=== PATIENT | female | born 1955 | race Caucasian/White ===

== ENCOUNTER → 2016-12-13 | Outpatient (CLI) | payer BC ==
--- NOTE | 2016-12-13 13:30 | MG ---
HISTORY: SCREENING Comparison: 12/12/2015 FINDINGS: Bilateral CC and MLO projections of the right and left breast were obtained. Scattered fibroglandul ar tissue is seen to be present. No significant architectural distortion, mass or clustered microca lcifications can be observed to suggest malignancy. No skin thickening or nipple retraction is appr eciated. No pathological lymphadenopathy can be identified. Benign-appearing calcifications scatte red throughout the right and left breasts are observed. IMPRESSION: NO RADIOGRAPHIC EVIDENCE OF MALIGNANCY. ACR CATEGORY: 2 - benign findings. FOLLOW-UP EXAM 1 YEAR. Diagnostic CAD was utilized and reviewed. * 0 (ZERO) - ASSESSMENT INCOMPLETE; ADDITIONAL IMAGING IS NEEDED. * 1/ (ONE) - NEGATIVE. * 2/II (TWO) - BENIGN FINDINGS. * 3/III (THREE) - PROBABLY BENIGN FINDING; SHORT INTERVAL FOLLOW-UP SUGGESTED. * 4/IV (FOUR) - SUSPICIOUS ABNORMALITY; BIOPSY SHOULD BE CONSIDERED. * 5/V - HIGHLY SUSPICIOUS OF MALIGNANCY; BIOPSY SHOULD BE PERFORMED. A NEGATIVE X-RAY REPORT SHOULD NOT DELAY BIOPSY IF A DOMINANT OR CLINICALLY SUSPICIOUS MASS IS PRESENT; 4 TO 8 PERCENT OF CANCERS ARE NOT IDENTIFIED BY X-RAY. A NEG ATIVE REPORT MAY REINFORCE THE CLINICAL IMPRESSION. ADENOSIS AND DENSE BREASTS MAY OBSCURE AN UNDER LYING NEOPLASM. Reported By:
== END ==
LOC: RAD 09:40
PROVIDERS: ATTEND Internal Medicine
DX: Z12.31 Encounter for screening mammogram for malignant neoplasm of breast (principal)
CPT/HCPCS: 77067

== ENCOUNTER → 2018-01-09 | Outpatient (CLI) | payer BC | LOC: RAD 10:16 | PROVIDERS: ATTEND Specialist | DX: Z12.31 Encounter for screening mammogram for malignant neoplasm of breast (principal) | CPT/HCPCS: 77067 ==

== ENCOUNTER 2023-06-14 08:55 | Inpatient (IN) ==
[2023-06-14 09:13] LABS: ABG BASE EXCESS 2.8 mmol/L (-2.0-2.0); ABG HCO3 25.9 mmol/L (22-26)
--- NOTE | 2023-06-14 09:14 | DR.SOBA ---
HPI Time Seen Time Seen by Provider: 06/14/23 09:00 Primary Care Physician Primary Care Physician: Dr. Lyn Complaints Chief Complaint Doctors Comments: PROGRESSIVE SOB FOR 3 WEEKS. 02 SAT WAS 83% ON ROOM AIR. NO H/O OF COPD BUT DOES HAVE ASTHMA. Chief Complaint:: Pt c/o 3 weeks of progressively worsening shortness of breath with nonproductive cough. Pt denies fever. Pt has also had intermittent generalized abdominal cramping with diarrhea. When she woke up this morning her shortness of breath was severe and states that her O2 sat at home was 83% on room air. Self Treatment fo Chief Complaint: Pt was seen by PCP on Saturday and O2 sat that day was 89% on room air. Pt was given Trilegy, steroid shot and rocephin shot. COVID-19 Coronavirus risk:travel/contact w/high risk person: No Has patient experienced Coronavirus symptoms: No Source History Provided: Significant Other Mode of Arrival Mode of Arrival: Ambulatory Timing Onset of Chief Complaint: 05/17/23 PMH PMH Past Medical History: Yes Past Medical History: Asthma, Diabetes, Dyslipidemia, GERD, Hypertension and Hypothyroidism Past Medical History Comment: Overactive Bladder, Osteoporosis Past Surgical History: Yes Surgical History: Appendectomy and Family History History of Family Medical Conditions: No Social History Does patient currently use any type of tobacco product: No Have you used tobacco products in the last 12 months: No Type of Tobacco Use: None Does any household member use tobacco: No Alcohol Use: None Do you use any recreational Drugs:: No Lives With: Spouse Lives Where: Home Travel Risk Coronavirus risk:travel/contact w/high risk person: No Has patient experienced Coronavirus symptoms: No Infectious screening In the last 2 months have you had wt loss of >10#?: NO Have you had fever, night sweats or hemotysis?: No Have you traveled outside the country in the last 6 months?: No Isolation: Droplet ROS Review of Systems Constitutional: Other (SOB WITH NON PRODUCTIVE COUGH) Eyes: No Symptoms Reported ENTM: No Symptoms Reported Respiratoy: Non-Productive Cough and Short of Breath Cardiovascular: No Symptoms Reported Gastrointestinal/Abdominal: No Symptoms Reported Genitourinary: No Symptoms Reported Neurological: No Symptoms Reported Musculoskeletal: No Symptoms Reported Integumentary: No Symptoms Reported Hematologic/Lymphatic: No Symptoms Reported Endocrine: No Symptoms Reported Psychiatric: No Symptoms Reported PE Vital Signs Vitals: Vital Signs Temperature 98.3 F Pulse Rate 88 Pulse Rate 85 Pulse Rate 84 Pulse Rate 84 Pulse Rate 86 Pulse Rate 85 Pulse Rate 90 Pulse Rate 85 Pulse Rate 87 Pulse Rate 91 Pulse Rate 87 Pulse Rate 90 Pulse Rate 96 Pulse Rate 103 Pulse Rate 101 Pulse Rate 93 Pulse Rate 98 Pulse Rate 101 Pulse Rate 95 Pulse Rate 96 Pulse Rate 109 Pulse Rate 100 Pulse Rate 101 Pulse Rate 103 Pulse Rate 99 Pulse Rate 99 Pulse Rate 104 Pulse Rate 72 Pulse Rate 116 Pulse Rate 120 Respiratory Rate 21 Respiratory Rate 21 Respiratory Rate 20 Respiratory Rate 20 Respiratory Rate 21 Respiratory Rate 20 Respiratory Rate 24 Respiratory Rate 19 Respiratory Rate 20 Respiratory Rate 26 Respiratory Rate 20 Respiratory Rate 20 Respiratory Rate 20 Respiratory Rate 23 Respiratory Rate 22 Respiratory Rate 22 Respiratory Rate 24 Respiratory Rate 21 Respiratory Rate 22 Respiratory Rate 27 Respiratory Rate 23 Respiratory Rate 26 Respiratory Rate 27 Respiratory Rate 24 Respiratory Rate 27 Respiratory Rate 24 Respiratory Rate 26 Blood Pressure 139/79 Blood Pressure 133/82 Blood Pressure 144/85 Blood Pressure 152/89 Blood Pressure 129/81 Blood Pressure 134/76 Blood Pressure 147/77 Blood Pressure 146/84 Blood Pressure 160/88 Blood Pressure 164/93 Blood Pressure 142/77 Blood Pressure 181/99 Blood Pressure 174/96 Blood Pressure 174/96 Blood Pressure 174/96 Blood Pressure 174/96 Blood Pressure 174/96 O2 Sat by Pulse Oximetry 95 O2 Sat by Pulse Oximetry 95 O2 Sat by Pulse Oximetry 95 O2 Sat by Pulse Oximetry 95 O2 Sat by Pulse Oximetry 95 O2 Sat by Pulse Oximetry 95 O2 Sat by Pulse Oximetry 94 O2 Sat by Pulse Oximetry 96 O2 Sat by Pulse Oximetry 96 O2 Sat by Pulse Oximetry 95 O2 Sat by Pulse Oximetry 95 O2 Sat by Pulse Oximetry 95 O2 Sat by Pulse Oximetry 95 O2 Sat by Pulse Oximetry 92 O2 Sat by Pulse Oximetry 94 O2 Sat by Pulse Oximetry 92 O2 Sat by Pulse Oximetry 92 O2 Sat by Pulse Oximetry 91 O2 Sat by Pulse Oximetry 93 O2 Sat by Pulse Oximetry 93 O2 Sat by Pulse Oximetry 89 O2 Sat by Pulse Oximetry 95 O2 Sat by Pulse Oximetry 94 O2 Sat by Pulse Oximetry 95 O2 Sat by Pulse Oximetry 96 O2 Sat by Pulse Oximetry 93 O2 Sat by Pulse Oximetry 93 O2 Sat by Pulse Oximetry 125 O2 Sat by Pulse Oximetry 91 O2 Sat by Pulse Oximetry 86 General Limitations: Physical Limitation (GETS SOB ON EXERTION) General Appearance: Alert and In Distress (MODERATE DISTRESS) Head Head Exam: Normal Inspection and Atraumatic Eyes Eye exam: Normal Appearance, PERRL and EOMI ENT ENT Exam: Normal Exam, Normal Oropharynx and Normal External Ear Exam Neck Neck Exam: Normal Inspection, Full ROM and Trachea Midline Chest Chest Inspection: Normal Inspection Respiratory Respiratory Exam: Prolonged Expiratory Phase Respiratory Exam: Bilateral: Wheezing Cardiovascular Cardiovascular Exam: Regular Rate and Normal Rhythm Abdominal Exam Abdominal Exam: Normal Inspection, Normal Bowel Sounds and Soft Extremities Extremities Exam: Normal Inspection and Full ROM Back Back Exam: Normal Inspection and Full ROM Neurologic Neurological Exam: Alert, Oriented X3 and CN II-XII Intact Psychiatric Psychiatric Exam: Normal Affect and Normal Mood Skin Skin Exam: Warm, Dry and Intact MDM Differential Diagnosis Differential Diagnosis: COPD, Mycardial Infarction, Pneumonia, Pulmonary embolism, Respiratory Insufficiency and URI COURSE Treatment Treatment: PATIENT WAS PLACED ON OXYGEN 0F 3 L AND MAINTAINED O2 SAT OF 95. HAD D-DIMER OF 8.9 AND HAD CTA OF CHEST THAT WAS NEGATIVE FOR PE,DID SHOW MODERATED PLEURAL EFFUSIONS R>L, CARDIOMEGALY,SUGGESTIVE OF CHR,LIVER CIRRHOSIS AND MILD TO MODERATE ASCITES. PATIENT HAD A POTASIUM OF 3.1 AND WAS GIVEN 40MEQ OF POTASSIUM IN ER. COVID WAS NEGATIVE BUT PATIENT HAD A WBC OF 15 AND WAS GIVEN ROCEPHINE 1 GRAM IV IN ER .PATIENT WAS DISCUSSED WITH DR CRUZ AT 1430 AND HE ACCEPTED THE PATIENT TO ADMISSION AND STATED TO COVER THE ELEVATED WBC'S WITH ROCEPHINE 1 GRAM IV Q 24 HOUR AND FUROSEMIDE 40MG IV DAILY AND POTASSIUM 20MEQ ORALLY BID .PATIENT WAS MADE AWARE OF THE INTENT TO ADMIT AND WAS AGREABLE TO THE ADMISSION. [facility] Labs Reviewed Laboratory Results Reviewed?: Yes 06/14/23 09:12 06/14/23 09:12 Laboratory: WBC 15.0 X10^3/uL (3.6-10.0) H 06/14/23 09:12 RBC 4.53 X10^6/uL (3.5-5.4) 06/14/23 09:12 Hgb 11.8 g/dL (12.0-16.0) L 06/14/23 09:12 Hct 37.1 % (36.0-47.0) 06/14/23 09:12 MCV 81.8 fL (80.0-100.0) 06/14/23 09:12 MCH 26.0 pg (27.0-34.0) L 06/14/23 09:12 MCHC 31.7 g/dL (33.0-35.0) L 06/14/23 09:12 RDW 21.3 % (11.6-16.5) H 06/14/23 09:12 Plt Count 163 X10^3/uL (150.0-450.0) 06/14/23 09:12 Plt Count Comment Adequate (ADEQUATE) 06/14/23 09:12 MPV 7.1 fL (7.4-11.0) L 06/14/23 09:12 Neut % (Auto) 73.5 % (42.0-75.0) 06/14/23 09:12 Lymph % (Auto) 14.8 % (21.0-51.0) L 06/14/23 09:12 [place] % (Auto) 7.8 % (0.0-13.0) 06/14/23 09:12 Eos % (Auto) 3.5 % (0.9-2.9) H 06/14/23 09:12 Baso % (Auto) 0.4 % (0.2-1.0) 06/14/23 09:12 Neut # (Auto) 11.0 x10^3/uL (2.2-4.8) H 06/14/23 09:12 Lymph # (Auto) 2.2 X10^3/uL (1.3-2.9) 06/14/23 09:12 [place] # (Auto) 1.2 x10^3/uL (0.3-0.8) H 06/14/23 09:12 Eos # (Auto) 0.5 x10^3/uL (0.0-0.2) H 06/14/23 09:12 Baso # (Auto) 0.1 X10^3/uL (0.0-0.1) 06/14/23 09:12 Absolute Nucleated RBC 0.0 /100WBC 06/14/23 09:12 Plt Morphology Comment Normal (NORMAL) 06/14/23 09:12 RBC Morphology Abnormal (NORMAL) A 06/14/23 09:12 Hypochromasia Slight A 06/14/23 09:12 Anisocytosis 1+ A 06/14/23 09:12 D-Dimer 8.90 ug/ml (0.0-0.57) H 06/14/23 09:12 Sample Site Lbra 06/14/23 09:12 ABG pH 7.490 (7.35-7.45) H 06/14/23 09:12 ABG pCO2 34.0 mmHg (35.0-45.0) L 06/14/23 09:12 ABG pO2 66.0 mmHg (80.0-100.0) L 06/14/23 09:12 ABG HCO3 25.9 mmol/L (22-26) 06/14/23 09:12 ABG O2 Saturation 94.0 % (90-100) 06/14/23 09:12 ABG Base Excess 2.8 mmol/L (-2.0-2.0) H 06/14/23 09:12 Anil Test N/a 06/14/23 09:12 A-a Gradient 91.0 mmHg 06/14/23 09:12 FiO2 28.0 06/14/23 09:12 Blood Gas Comments Pt julia well elj 06/14/23 09:12 Sodium 138 mmol/L (136-145) 06/14/23 09:12 Corrected Sodium 138 mmol/L (136-145) 06/14/23 09:12 Potassium 3.1 mmol/L (3.5-5.1) L 06/14/23 09:12 Chloride 99 mmol/L (98-107) 06/14/23 09:12 Carbon Dioxide 31.1 mmol/L (21-32) 06/14/23 09:12 BUN 9 mg/dL (7-18) 06/14/23 09:12 Creatinine 0.55 mg/dL (0.55-1.02) 06/14/23 09:12 Est GFR (MDRD) Af Amer > 60 (>60) 06/14/23 09:12 Est GFR (MDRD) Non-Af > 60 (>60) 06/14/23 09:12 Glucose 117 mg/dL (65-99) H 06/14/23 09:12 Calcium 7.7 mg/dL (8.5-10.1) L 06/14/23 09:12 Corrected Calcium 8.7 mg/dL (8.5-10.1) 06/14/23 09:12 Total Bilirubin 2.00 mg/dL (0.2-1.0) H 06/14/23 09:12 AST 25 Units/L (15-37) 06/14/23 09:12 ALT 23 Units/L (12-78) 06/14/23 09:12 Alkaline Phosphatase 90 Units/L (46-116) 06/14/23 09:12 Creatine Kinase 86 Units/L (26-192) 06/14/23 09:12 Troponin I High Sens 21.4 ng/L (4.0-60.0) 06/14/23 09:12 B-Natriuretic Peptide 38.5 pg/mL (0-79) 06/14/23 09:12 Total Protein 7.3 g/dL (6.4-8.2) 06/14/23 09:12 Albumin 2.7 g/dL (3.4-5.0) L 06/14/23 09:12 Globulin 4.6 g/dL (2.5-4.5) H 06/14/23 09:12 Albumin/Globulin Ratio 0.6 Ratio (1.1-2.1) L 06/14/23 09:12 SARS-CoV-2 (PCR) Negative (NEGATIVE) 06/14/23 09:05 Influenza Type A (PCR) Negative (NEGATIVE) 06/14/23 09:05 Influenza Type B (PCR) Negative (NEGATIVE) 06/14/23 09:05 RSV (PCR) Negative (NEGATIVE) 06/14/23 09:05 Opioid Opioid Risk Tool Age (Devin box if 16-45): No History of Preadolescent Sexual Abuse: No Total: 0 Total Score Risk Category: Low Risk Copyright: Bandar KENNEDY predicting aberrant behaviors Discharge Plan Diagnosis Discharge Problem: Congestive heart failure (CHF), Hypoxemia, Bilateral pleural effusion, Elevated d-dimer, Cirrhosis of liver with ascites Discharge Plan Patient Disposition: ADMITTED INPATIENT Condition: Stable Prescriptions: No Action atorvastatin 40 mg Tablet 40 mg PO QDAY alendronate 70 mg Tablet 70 mg PO QWEEK aspirin [Aspir-Low] 81 mg Tablet,Delayed Release (Dr/Ec) 81 mg PO QDAY omeprazole 20 mg Capsule,Delayed Release(Dr/Ec) 20 mg PO QDAY levothyroxine [Synthroid] 50 mcg Tablet 50 mcg PO QDAY metformin 850 mg Tablet 850 mg PO BID ciprofloxacin HCl [Cipro] 500 mg Tablet 500 mg PO BID Rx Instructions: x 10 days - started on 06/11/23 oxybutynin chloride 5 mg Tablet Extended Release 24hr 5 mg PO DAILY losartan 100 mg Tablet 100 mg PO DAILY fluticasone propionate 50 mcg/actuation [place],Suspension 50 mcg INTRANASAL DAILY dicyclomine 10 mg Capsule 10 mg PO TID Health Concerns: Post Hospitalization: new medications and changes needed to prevent readmission or further decline. Pt educated and given instructions on all concerns. Plan of Treatment: Continue with present treatment and follow up plan. Pt is to keep follow up appointment as instructed and take medications as ordered. Orders to Discharge Patient Discharge Orders: Transfer (Routine); Ordered 06/14/23 Ordered By: Jonnathan Huerta Follow ups/Referrals Follow ups/Referrals: Arnold Lyn [Primary Care Provider] - 3 days
[2023-06-14] MEDS ORDERED: SOLU-Medrol 125 MG VIAL IVP ONE (09:16)
[2023-06-14] MEDS ORDERED: DUONEB 0.5 MG/3 MG (3 mL) NEB ONE ×2 (09:16→09:23)
[2023-06-14] MEDS ORDERED: SOLU-Medrol 125 MG VIAL ONE (09:16)
--- NOTE | 2023-06-14 09:26 | RAD ---
HISTORYShortness of breathSTUDYChest AP portableCOMPARISONNoneFINDINGSThe heart is enlarged. [place] are indistinct in the interstitium is indistinct suggestive of interstitial edema. No definite alveolar edema identified. Aorta is calcified and ectatic. Bilateral moderately large pleural effusions are present right greater than left obscuring the lung markings in the lower lobes bilaterally. Bony thorax is unremarkable.IMPRESSIONCardiomegaly with congestive heart failure and bilateral pleural effusions right greater than leftElectronically signed by: JOANNE MARCOS (Jun 14, 2023 09:25:28)
[2023-06-14] MEDS ORDERED: LASIX IVP ONE ×2 (09:50)
--- NOTE | 2023-06-14 10:03 | EKG ---
Test Reason : Short of Breath Blood Pressure : */* mmHG Vent. Rate : 104 BPM Atrial Rate : 104 BPM P-R Int : 112 ms QRS Dur : 86 ms QT Int : 360 ms P-R-T Axes : 17 -14 25 degrees QTc Int : 473 ms Sinus tachycardia Possible Anterior infarct , age undetermined Abnormal ECG No previous ECGs available Confirmed by Babatunde Abdi ([id number]) on 06/15/2023 4:51:16 PM Referred By: Confirmed By: Babatunde Abdi
[2023-06-14 10:11] LABS: BASOPHILS # (AUTO) 0.1 X10^3/uL (0.0-0.1); BASOPHILS % (AUTO) 0.4 % (0.2-1.0); EOSINOPHILS # (AUTO) 0.5 x10^3/uL (0.0-0.2); EOSINOPHILS % (AUTO) 3.5 % (0.9-2.9); HEMATOCRIT 37.1 % (36.0-47.0); HEMOGLOBIN 11.8 g/dL (12.0-16.0); LYMPHOCYTES # (AUTO) 2.2 X10^3/uL (1.3-2.9); LYMPHOCYTES % (AUTO) 14.8 % (21.0-51.0); MEAN CORPUSCULAR HGB CONC 31.7 g/dL (33.0-35.0); MEAN CORPUSCULAR VOLUME 81.8 fL (80.0-100.0); MEAN PLATELET VOLUME 7.1 fL (7.4-11.0); MONOCYTES # (AUTO) 1.2 x10^3/uL (0.3-0.8); MONOCYTES % (AUTO) 7.8 % (0.0-13.0); NEUTROPHILS % (AUTO) 73.5 % (42.0-75.0); PLATELET COUNT 163 X10^3/uL (150.0-450.0); RED BLOOD COUNT 4.53 X10^6/uL (3.5-5.4); RED CELL DISTRIBUTION WIDTH 21.3 % (11.6-16.5)
[2023-06-14] MEDS ORDERED: ZOFRAN INJ 4 MG VIAL ONE (10:14)
[2023-06-14] MEDS ORDERED: ZOFRAN INJ 4 MG VIAL IVP ONE (10:20)
[2023-06-14 10:27] LABS: ALANINE AMINOTRANSFERASE 23 Units/L (12-78); ALBUMIN 2.7 g/dL (3.4-5.0); ALKALINE PHOSPHATASE 90 Units/L (46-116); ASPARTATE AMINO TRANSFERASE 25 Units/L (15-37); BLOOD UREA NITROGEN 9 mg/dL (7-18); CALCIUM 7.7 mg/dL (8.5-10.1); CARBON DIOXIDE 31.1 mmol/L (21-32); CHLORIDE 99 mmol/L (98-107); COR CA(FOR HYPOALB) 8.7 mg/dL (8.5-10.1); COR NA(FOR HYPERGLY) 138 mmol/L (136-145); CREATININE 0.55 mg/dL (0.55-1.02); GLUCOSE 117 mg/dL (65-99); POTASSIUM 3.1 mmol/L (3.5-5.1); SODIUM 138 mmol/L (136-145); TOTAL PROTEIN 7.3 g/dL (6.4-8.2); eGFR NON BLACK RACES > 60 (>60)
[2023-06-14 10:37] LABS: PLATELET MORPHOLOGY COMMENT NORMAL (NORMAL)
[2023-06-14 10:39] LABS: ANISOCYTOSIS 1+; HYPOCHROMASIA SLIGHT
[2023-06-14] MEDS ORDERED: OMNIPAQUE 350 mg/mL 100 mL BTL 100 ML ONE (11:10)
[2023-06-14] MEDS ORDERED: K-DUR TAB 20 MEQ PO ONE ×2 (11:14→11:18)
--- NOTE | 2023-06-14 12:37 | CT ---
HISTORYELEVATED DDIMER, SHORT OF BREATHSTUDYCTA CHESTCOMPARISONNoneTECHNIQUEMultiple axial images of the chest were obtained from the thoracic inlet to the upper abdomen after the administration of IV contrast. 3D reconstructions utilizing axial MIPS imaging was performed and reviewed. Dose reduction techniques including Automated Exposure Control (AEC) and adjustment of mA and kV were utilized.FINDINGSAdequate opacification of the central, lobar, and segmental pulmonary arteries. No filling defect to suggest pulmonary embolus. The heart is enlarged without pericardial effusion. No right heart strain. The main pulmonary artery and ascending aorta are normal in caliber. No mediastinal or hilar lymphadenopathy. Hyperdensity is seen in the stomach and distal esophagus of uncertain etiology. Visualized portions of the upper abdomen reveal a cirrhotic liver with [id number] ascites. No destructive or expansile osseous lesion.The central airways are patent. Moderate bilateral pleural effusions, right greater than left with associated atelectasis.. There are multifocal ground-glass opacities and consolidations. No pneumothorax.IMPRESSION1. No acute pulmonary embolus.2. Moderate pleural effusions, right greater than left with associated atelectasis. There is cardiomegaly. These findings are suggestive of congestive heart. However, cannot entirely exclude underlying infection/pneumonia as there are a few scattered ground-glass nodules and consolidations which may represent atelectasis, pneumonia, or pulmonary edema. Correlate with lab values.3. Liver cirrhosis with [id number] ascites in the upper outerElectronically signed by: Nikhil Lopez (Jun 14, 2023 12:36:31)
[2023-06-14] MEDS ORDERED: ROCEPHIN VIAL 1 GRAM IVP ONE (14:49)
[2023-06-14] MEDS ORDERED: ROCEPHIN VIAL 1 GRAM ONE (14:50)
[2023-06-14] MEDS: ROCEPHIN VIAL 1 GRAM 1 G in NS 100 ML IV 100 ML IV SCH (15:21)
[2023-06-14] MEDS ORDERED: XOPENEX 1.25 MG/3 ML NEBULE NEB ONE (19:05)
[2023-06-14] MEDS ORDERED: PULMICORT NEB TX 0.5 MG NEB ONE (19:05)
[2023-06-14] MEDS: PULMICORT NEB TX 0.5 MG NEB SCH (20:00)
[2023-06-14] MEDS: XOPENEX 1.25 MG/3 ML NEBULE NEB SCH (20:00)
[2023-06-14] MEDS ORDERED: GLUCOPHAGE PO SCH (21:00)
[2023-06-14] MEDS: BENTYL CAP 10 MG PO SCH (21:41)
[2023-06-15] MEDS: XOPENEX 1.25 MG/3 ML NEBULE NEB SCH ×3 (05:05→20:43)
[2023-06-15] MEDS: BENTYL CAP 10 MG PO SCH ×3 (05:43→20:59)
[2023-06-15 05:53] LABS: BASOPHILS % (AUTO) 0.2 % (0.2-1.0); EOSINOPHILS % (AUTO) 0.1 % (0.9-2.9); HEMATOCRIT 37.6 % (36.0-47.0); HEMOGLOBIN 12.2 g/dL (12.0-16.0); LYMPHOCYTES # (AUTO) 0.8 X10^3/uL (1.3-2.9); LYMPHOCYTES % (AUTO) 5.8 % (21.0-51.0); MEAN CORPUSCULAR HEMOGLOBIN 26.1 pg (27.0-34.0); MEAN CORPUSCULAR HGB CONC 32.4 g/dL (33.0-35.0); MEAN CORPUSCULAR VOLUME 80.6 fL (80.0-100.0); MEAN PLATELET VOLUME 7.2 fL (7.4-11.0); MONOCYTES # (AUTO) 0.9 x10^3/uL (0.3-0.8); MONOCYTES % (AUTO) 6.4 % (0.0-13.0); NEUTROPHILS # (AUTO) 11.9 x10^3/uL (2.2-4.8); NEUTROPHILS % (AUTO) 87.5 % (42.0-75.0); PLATELET COUNT 137 X10^3/uL (150.0-450.0); RED BLOOD COUNT 4.66 X10^6/uL (3.5-5.4); WHITE BLOOD COUNT 13.6 X10^3/uL (3.6-10.0)
[2023-06-15 06:05] LABS: ALANINE AMINOTRANSFERASE 23 Units/L (12-78); ALBUMIN 2.7 g/dL (3.4-5.0); ALKALINE PHOSPHATASE 98 Units/L (46-116); ASPARTATE AMINO TRANSFERASE 34 Units/L (15-37); BLOOD UREA NITROGEN 10 mg/dL (7-18); CALCIUM 7.7 mg/dL (8.5-10.1); CARBON DIOXIDE 31.3 mmol/L (21-32); CHLORIDE 99 mmol/L (98-107); COR CA(FOR HYPOALB) 8.7 mg/dL (8.5-10.1); COR NA(FOR HYPERGLY) 140 mmol/L (136-145); GLUCOSE 165 mg/dL (65-99); MAGNESIUM 1.4 mg/dL (2.0-2.9); POTASSIUM 3.9 mmol/L (3.5-5.1); SODIUM 138 mmol/L (136-145); TOTAL PROTEIN 7.5 g/dL (6.4-8.2); eGFR NON BLACK RACES > 60 (>60)
[2023-06-15 06:11] LABS: ANISOCYTOSIS 1+; HYPOCHROMASIA SLIGHT; PLATELET MORPHOLOGY COMMENT NORMAL (NORMAL); SCHISTOCYTES SLIGHT; TARGET CELLS SLIGHT
[2023-06-15] MEDS ORDERED: CONSULT PHARMACY - POTASSIUM & MAGNESIUM XX SCH (07:00)
[2023-06-15] MEDS: PULMICORT NEB TX 0.5 MG NEB SCH ×2 (08:25→20:44)
[2023-06-15] MEDS: PriLOSEC PO SCH (08:31)
[2023-06-15] MEDS: LIPITOR TAB 40 MG PO SCH (08:31)
[2023-06-15] MEDS: K-DUR TAB 20 MEQ PO SCH (08:32)
[2023-06-15] MEDS: ASPIRIN EC 81 MG PO SCH (08:32)
[2023-06-15] MEDS: MAG-OX TAB PO SCH ×2 (08:33→20:10)
[2023-06-15] MEDS: COZAAR PO SCH (08:34)
[2023-06-15] MEDS: SYNTHROID 50 mcg TAB PO SCH (08:34)
[2023-06-15] MEDS: OXYBUTYNIN CHLORIDE ER PO SCH (08:35)
[2023-06-15] MEDS: LASIX IVP SCH (08:39)
[2023-06-15] MEDS: ROCEPHIN VIAL 1 GRAM 1 G in NS 100 ML IV 100 ML IV SCH (08:41)
[2023-06-15] MEDS: FLONASE NASAL SPRAY ENOSTRIL SCH (08:55)
--- NOTE | 2023-06-15 10:56 | RAD ---
EXAM:AP chestHISTORY:CHF hypoxiaCOMPARISON:June 14, 2023FINDINGS:Stable cardiomegaly with pulmonary venous congestion. Moderately large right pleural effusion is again noted with diffuse scattered infiltrates/atelectasis or edema.IMPRESSION:Considering technical differences there is little significant change since 1 day earlier. See above.THIS IS AN ELECTRONICALLY VERIFIED FINAL REPORT06/15/2023 10:53 AM - Electronically signed by Tee Alvarado MD
--- NOTE | 2023-06-15 23:01 | DR.H&P ---
H&P History & Physical for Day of: H&P Date: 06/15/23 Chief Complaint Chief Complaint: Progressively worsening shortness of breath with abdominal pain and diarrhea. Allergies Allergies Allergy/AdvReac Type Severity Reaction Status Date / Time nitrofurantoin Allergy Verified 06/14/23 09:10 [From Macrobid] History of Present Illness History of Present Illness: This is a pleasant 67-year-old white female who presented to the [facility] emergency department for a 3-week history of increasing shortness of breath. She woke up this morning feeling very short of breath, and her checked her O2 sat, and it was 85% on room air. She was also complaining of abdominal pain/cramping and diarrhea. Once she arrived to the emergency department, they placed her on 3 L nasal cannula and were able to get her oxygen level up to 95%. The ER physician did a chest x-ray, thought the patient may be slightly fluid overloaded, and started on IV Lasix, and she r esponded positively with improving aeration and decreasing shortness of breath. A D-dimer was drawn, and it came back elevated at 8.9 so they proceeded with a CTA of the chest, and it was negative for pulmonary embolism. However the CTA did show that the patient has bilateral pleural effusions right greater than left and changes of pulmonary congestion. The chest x-ray from yesterday compared to today's is not significantly changed after IV diuresis. See that her BNP has gone up from 38-77. Patient also had a elevated white blood cell count 15,000, and and today it is slightly down at 13,600. The patient reports that she feels better this morning and that her breathing is back to her normal baseline. The CTA scan also shows that she has cirrhosis of the liver with a moderate amount of ascites in her abdomen. The patient's bilirubin was elevated at 2.0 coming in and has decreased to 1.8 this morning. The emergency department did not start a work-up for her diarrhea so we will order stool cultures, stool WBCs and C. difficile. Past Medical History Past Medical History: Asthma, Diabetes, Dyslipidemia, GERD, Hypertension and Hyp othyroidism Past Surgical History Surgical History: Appendectomy, and Tonsillectomy Social History Does patient currently use any type of tobacco product: No Have you used tobacco products in the last 12 months: No Type of Tobacco Use: None Does any household member use tobacco: No Alcohol Use: None Drug Use: None Medications Home Medications: Home Medications Medication Instructions Recorded Confirmed Type alendronate 70 mg tablet 70 mg PO QWEEK 10/09/18 06/14/23 History aspirin 81 mg tablet,delayed 81 mg PO QDAY 10/09/18 06/14/23 History release (Aspir-Low) atorvastatin 40 mg tablet 40 mg PO QDAY 10/09/18 06/14/23 History levothyroxine 50 mcg tablet 50 mcg PO QDAY 10/09/18 06/14/23 History (Synthroid) omeprazole 20 mg capsule,delayed 20 mg PO QDAY 10/09/18 06/14/23 History release ciprofloxacin HCl 500 mg tablet 500 mg PO BID 06/14/23 06/14/23 History (Cipro) dicyclomine 10 mg capsule 10 mg PO TID 06/14/23 06/14/23 History fluticasone propionate 50 50 mcg intranasal DAILY 06/14/23 06/14/23 History mcg/actuation nasal spray,suspension losartan 100 mg tablet 100 mg PO DAILY 06/14/23 06/14/23 History metformin 850 mg tablet 850 mg PO BID 06/14/23 06/14/23 History oxybutynin chloride 5 mg 5 mg PO DAILY 06/14/23 06/14/23 History tablet,extended release 24 hr Labs 06/15/23 05:40 06/15/23 05:40 Labs: Laboratory WBC 13.6 X10^3/uL (3.6-10.0) H 06/15/23 05:40 RBC 4.66 X10^6/uL (3.5-5.4) 06/15/23 05:40 Hgb 12.2 g/dL (12.0-16.0) 06/15/23 05:40 Hct 37.6 % (36.0-47.0) 06/15/23 05:40 MCV 80.6 fL (80.0-100.0) 06/15/23 05:40 MCH 26.1 pg (27.0-34.0) L 06/15/23 05:40 MCHC 32.4 g/dL (33.0-35.0) L 06/15/23 05:40 RDW 22.0 % (11.6-16.5) H 06/15/23 05:40 Plt Count 137 X10^3/uL (150.0-450.0) L 06/15/23 05:40 Plt Count Comment Decreased (ADEQUATE) A 06/15/23 05:40 MPV 7.2 fL (7.4-11.0) L 06/15/23 05:40 Neut % (Auto) 87.5 % (42.0-75.0) H 06/15/23 05:40 Lymph % (Auto) 5.8 % (21.0-51.0) L 06/15/23 05:40 Swisher % (Auto) 6.4 % (0.0-13.0) 06/15/23 05:40 Eos % (Auto) 0.1 % (0.9-2.9) L 06/15/23 05:40 Baso % (Auto) 0.2 % (0.2-1.0) 06/15/23 05:40 Neut # (Auto) 11.9 x10^3/uL (2.2-4.8) H 06/15/23 05:40 Lymph # (Auto) 0.8 X10^3/uL (1.3-2.9) L 06/15/23 05:40 Swisher # (Auto) 0.9 x10^3/uL (0.3-0.8) H 06/15/23 05:40 Eos # (Auto) 0.0 x10^3/uL (0.0-0.2) 06/15/23 05:40 Baso # (Auto) 0.0 X10^3/uL (0.0-0.1) 06/15/23 05:40 Absolute Nucleated RBC 0.1 /100WBC 06/15/23 05:40 Plt Morphology Comment Normal (NORMAL) 06/15/23 05:40 RBC Morphology Abnormal (NORMAL) A 06/15/23 05:40 Hypochromasia Slight A 06/15/23 05:40 Anisocytosis 1+ A 06/15/23 05:40 Target Cells Slight A 06/15/23 05:40 Schistocytes Slight A 06/15/23 05:40 D-Dimer 8.90 ug/ml (0.0-0.57) H 06/14/23 09:12 Sample Site Lbra 06/14/23 09:12 ABG pH 7.490 (7.35-7.45) H 06/14/23 09:12 ABG pCO2 34.0 mmHg (35.0-45.0) L 06/14/23 09:12 ABG pO2 66.0 mmHg (80.0-100.0) L 06/14/23 09:12 ABG HCO3 25.9 mmol/L (22-26) 06/14/23 09:12 ABG O2 Saturation 94.0 % (90-100) 06/14/23 09:12 ABG Base Excess 2.8 mmol/L (-2.0-2.0) H 06/14/23 09:12 Anil Test N/a 06/14/23 09:12 A-a Gradient 91.0 mmHg 06/14/23 09:12 FiO2 28.0 06/14/23 09:12 Blood Gas Comments Pt julia well elj 06/14/23 09:12 Sodium 138 mmol/L (136-145) 06/15/23 05:40 Corrected Sodium 140 mmol/L (136-145) 06/15/23 05:40 Potassium 3.9 mmol/L (3.5-5.1) 06/15/23 05:40 Chloride 99 mmol/L (98-107) 06/15/23 05:40 Carbon Dioxide 31.3 mmol/L (21-32) 06/15/23 05:40 BUN 10 mg/dL (7-18) 06/15/23 05:40 Creatinine 0.50 mg/dL (0.55-1.02) L 06/15/23 05:40 Est GFR (MDRD) Af Amer > 60 (>60) 06/15/23 05:40 Est GFR (MDRD) Non-Af > 60 (>60) 06/15/23 05:40 Glucose 165 mg/dL (65-99) H 06/15/23 05:40 POC Glucose (mg/dL) 149 mg/dL (65-99) H 06/15/23 19:54 Calcium 7.7 mg/dL (8.5-10.1) L 06/15/23 05:40 Corrected Calcium 8.7 mg/dL (8.5-10.1) 06/15/23 05:40 Magnesium 1.4 mg/dL (2.0-2.9) L 06/15/23 05:40 Total Bilirubin 1.80 mg/dL (0.2-1.0) H 06/15/23 05:40 AST 34 Units/L (15-37) 06/15/23 05:40 ALT 23 Units/L (12-78) 06/15/23 05:40 Alkaline Phosphatase 98 Units/L (46-116) 06/15/23 05:40 Creatine Kinase 86 Units/L (26-192) 06/14/23 09:12 Troponin I High Sens 21.4 ng/L (4.0-60.0) 06/14/23 09:12 B-Natriuretic Peptide 77.5 pg/mL (0-79) 06/15/23 05:40 Total Protein 7.5 g/dL (6.4-8.2) 06/15/23 05:40 Albumin 2.7 g/dL (3.4-5.0) L 06/15/23 05:40 Globulin 4.8 g/dL (2.5-4.5) H 06/15/23 05:40 Albumin/Globulin Ratio 0.6 Ratio (1.1-2.1) L 06/15/23 05:40 SARS-CoV-2 (PCR) Negative (NEGATIVE) 06/14/23 09:05 Influenza Type A (PCR) Negative (NEGATIVE) 06/14/23 09:05 Influenza Type B (PCR) Negative (NEGATIVE) 06/14/23 09:05 RSV (PCR) Negative (NEGATIVE) 06/14/23 09:05 Review of Systems Constitutional: Weakness and Malaise Eyes: No Symptoms Reported ENT: No Symptoms Reported Respiratory: Cough, Dry, Shortness of Breath and Wheezing; denies Hemoptysis or Pleuritic Pain Cardiovascular: No Symptoms Reported Gastrointestinal: Abdominal Pain and Diarrhea Genitourinary: No Symptoms Reported Musculoskeletal: No Symptoms Reported Skin: No Symptoms Reported Neurological: No Symptoms Reported Physical Exam Vital Signs: Vital Signs Temperature 98.4 F Temperature 97.7 F Temperature 97.7 F Pulse Rate [Right Brachial] 88 Pulse Rate [Right Brachial] 103 Pulse Rate [Right Brachial] 103 Pulse Rate 86 Respiratory Rate 19 Respiratory Rate 20 Respiratory Rate 20 Blood Pressure [Left Arm] 132/81 Blood Pressure [Left Arm] 135/83 Blood Pressure [Left Arm] 135/83 O2 Sat by Pulse Oximetry 95 O2 Sat by Pulse Oximetry 95 O2 Sat by Pulse Oximetry 92 O2 Sat by Pulse Oximetry 90 Oriented: Normal, Time, Person and Place Eyes: Normal Ear: Normal Respiratory: Diminished Throughout and Rhonchi Throughout Cardiovascular: Normal Auscultation: Bowel Sounds: Increased Palpation: Normal Tenderness: Diffuse Skin: Normal Musculoskeletal: Normal Psychiatric: Normal Mood Description: Calm Affect: Normal Speech Pattern: Clear and Appropriate Assessment/Plan (1) Congestive heart failure (CHF): Status: Acute Plan: Diuresis with IV Lasix. Check daily BNPs and chest x-rays. Monitor O2 saturation. (2) Hypoxemia: Status: Acute Plan: Supplemental O2 via nasal cannula, diuresis with Lasix. I also will start nebulizer treatments as well. (3) Bilateral pleural effusion: Status: Acute Plan: IV diuresis. (4) Cirrhosis of liver with ascites: Narrative Support Text: I am not aware of why the patient has cirrhosis of the liver but I am noting it for Dr. Lyn her primary care physician to evaluate. Status: Acute (5) Elevated d-dimer: Status: Acute Plan: CT of the lungs were done and it ruled out pulmonary embolism. (6) Abdominal pain: Status: Acute Plan: Pain control. We will do stool cultures, WBCs, blood and C. difficile. We will also check ova and parasite. (7) Diarrhea: Status: Acute Plan: Stool infection work-up. IV Cipro and Flagyl after stool is collected for stool studies.
[2023-06-16] MEDS ORDERED: MILK OF MAGNESIA PO PRN (00:22)
[2023-06-16] MEDS: FLAGYL IV PREMIX 500 MG BAG 500 MG/100 ML BAG IV SCH ×4 (00:22→20:25)
[2023-06-16 05:16] LABS: BASOPHILS % (AUTO) 0.2 % (0.2-1.0); EOSINOPHILS # (AUTO) 0.4 x10^3/uL (0.0-0.2); EOSINOPHILS % (AUTO) 2.2 % (0.9-2.9); HEMATOCRIT 35.1 % (36.0-47.0); HEMOGLOBIN 11.2 g/dL (12.0-16.0); LYMPHOCYTES # (AUTO) 1.3 X10^3/uL (1.3-2.9); LYMPHOCYTES % (AUTO) 7.7 % (21.0-51.0); MEAN CORPUSCULAR HEMOGLOBIN 25.9 pg (27.0-34.0); MEAN CORPUSCULAR HGB CONC 31.9 g/dL (33.0-35.0); MEAN CORPUSCULAR VOLUME 81.1 fL (80.0-100.0); MEAN PLATELET VOLUME 7.1 fL (7.4-11.0); MONOCYTES # (AUTO) 1.5 x10^3/uL (0.3-0.8); MONOCYTES % (AUTO) 8.9 % (0.0-13.0); NEUTROPHILS # (AUTO) 13.6 x10^3/uL (2.2-4.8); PLATELET COUNT 147 X10^3/uL (150.0-450.0); RED BLOOD COUNT 4.33 X10^6/uL (3.5-5.4); RED CELL DISTRIBUTION WIDTH 21.1 % (11.6-16.5); WHITE BLOOD COUNT 16.8 X10^3/uL (3.6-10.0)
[2023-06-16] MEDS: BENTYL CAP 10 MG PO SCH ×3 (05:23→21:35)
[2023-06-16 05:33] LABS: ALANINE AMINOTRANSFERASE 20 Units/L (12-78); ALBUMIN 2.4 g/dL (3.4-5.0); ALKALINE PHOSPHATASE 86 Units/L (46-116); ASPARTATE AMINO TRANSFERASE 23 Units/L (15-37); BLOOD UREA NITROGEN 9 mg/dL (7-18); CALCIUM 7.3 mg/dL (8.5-10.1); CARBON DIOXIDE 32.3 mmol/L (21-32); CHLORIDE 100 mmol/L (98-107); COR CA(FOR HYPOALB) 8.6 mg/dL (8.5-10.1); COR NA(FOR HYPERGLY) 140 mmol/L (136-145); CREATININE 0.39 mg/dL (0.55-1.02); GLUCOSE 132 mg/dL (65-99); MAGNESIUM 1.6 mg/dL (2.0-2.9); POTASSIUM 3.5 mmol/L (3.5-5.1); SODIUM 139 mmol/L (136-145); TOTAL PROTEIN 6.6 g/dL (6.4-8.2); eGFR NON BLACK RACES > 60 (>60)
[2023-06-16 05:37] LABS: ANISOCYTOSIS 1+; HYPOCHROMASIA SLIGHT; PLATELET MORPHOLOGY COMMENT NORMAL (NORMAL); TARGET CELLS SLIGHT
[2023-06-16] MEDS ORDERED: CONSULT PHARMACY - POTASSIUM & MAGNESIUM XX SCH ×2 (06:00)
--- NOTE | 2023-06-16 06:13 | RAD ---
HISTORYCHF HX: ASTHMA, HTN, DMSTUDYCHEST, 1 [id number]/30/2023FINDINGSThe trachea is midline. The cardiac silhouette is slightly enlarged.. Pulmonary venous congestion with interstitial edema. Bibasilar subsegmental atelectasis and/or infiltrates with bilateral pleural effusions. The bony thorax is unremarkable.IMPRESSIONStable portable.Electronically signed by: Vasu Meng (Jun 16, 2023 06:12:15)
[2023-06-16] MEDS: XOPENEX 1.25 MG/3 ML NEBULE NEB SCH ×3 (06:15→20:45)
[2023-06-16] MEDS: LASIX IVP SCH (08:36)
[2023-06-16] MEDS: SYNTHROID 50 mcg TAB PO SCH (08:38)
[2023-06-16] MEDS: ASPIRIN EC 81 MG PO SCH (08:38)
[2023-06-16] MEDS: MAG-OX TAB PO SCH ×2 (08:39→20:23)
[2023-06-16] MEDS: COZAAR PO SCH (08:40)
[2023-06-16] MEDS: K-DUR TAB 20 MEQ PO SCH (08:41)
[2023-06-16] MEDS: PriLOSEC PO SCH (08:41)
[2023-06-16] MEDS: LIPITOR TAB 40 MG PO SCH (08:42)
[2023-06-16] MEDS: OXYBUTYNIN CHLORIDE ER PO SCH (08:42)
[2023-06-16] MEDS: ROCEPHIN VIAL 1 GRAM 1 G in NS 100 ML IV 100 ML IV SCH (08:55)
[2023-06-16] MEDS ORDERED: MAG-OX TAB PO SCH (09:00)
[2023-06-16] MEDS: PULMICORT NEB TX 0.5 MG NEB SCH ×2 (09:00→20:45)
[2023-06-16] MEDS: CIPRO IV 400 MG PREMIX* 400 MG/200 ML IV.SOLN. IV SCH ×2 (09:28→20:25)
[2023-06-16] MEDS: FLONASE NASAL SPRAY ENOSTRIL SCH (10:18)
[2023-06-16] MEDS ORDERED: DULCOLAX SUPPOSITORY 10 MG RECTAL ONE (10:18)
[2023-06-16] MEDS ORDERED: K-DUR TAB 20 MEQ PO SCH (11:00)
[2023-06-16] MEDS ORDERED: MAALOX or MYLANTA PO PRN (20:02)
[2023-06-16] MEDS: ROBITUSSIN DM PO PRN (20:21)
[2023-06-16] MEDS: RESTORIL CAP 15 MG PO PRN (20:22)
[2023-06-16] MEDS ORDERED: GLUCOPHAGE PO SCH (21:00)
[2023-06-17] MEDS: FLAGYL IV PREMIX 500 MG BAG 500 MG/100 ML BAG IV SCH ×4 (02:09→20:42)
[2023-06-17] MEDS: BENTYL CAP 10 MG PO SCH ×3 (05:00→21:57)
[2023-06-17 05:15] LABS: BASOPHILS # (AUTO) 0.1 X10^3/uL (0.0-0.1); BASOPHILS % (AUTO) 0.5 % (0.2-1.0); EOSINOPHILS # (AUTO) 0.4 x10^3/uL (0.0-0.2); EOSINOPHILS % (AUTO) 3.2 % (0.9-2.9); HEMATOCRIT 34.8 % (36.0-47.0); HEMOGLOBIN 11.2 g/dL (12.0-16.0); LYMPHOCYTES # (AUTO) 0.9 X10^3/uL (1.3-2.9); LYMPHOCYTES % (AUTO) 6.9 % (21.0-51.0); MEAN CORPUSCULAR HEMOGLOBIN 25.9 pg (27.0-34.0); MEAN CORPUSCULAR HGB CONC 32.1 g/dL (33.0-35.0); MEAN CORPUSCULAR VOLUME 80.7 fL (80.0-100.0); MEAN PLATELET VOLUME 7.1 fL (7.4-11.0); MONOCYTES # (AUTO) 1.2 x10^3/uL (0.3-0.8); MONOCYTES % (AUTO) 8.9 % (0.0-13.0); NEUTROPHILS # (AUTO) 10.7 x10^3/uL (2.2-4.8); NEUTROPHILS % (AUTO) 80.5 % (42.0-75.0); PLATELET COUNT 106 X10^3/uL (150.0-450.0); RED BLOOD COUNT 4.31 X10^6/uL (3.5-5.4); RED CELL DISTRIBUTION WIDTH 21.1 % (11.6-16.5); WHITE BLOOD COUNT 13.3 X10^3/uL (3.6-10.0)
[2023-06-17] MEDS: XOPENEX 1.25 MG/3 ML NEBULE NEB SCH ×3 (05:30→20:30)
[2023-06-17 05:32] LABS: ALANINE AMINOTRANSFERASE 19 Units/L (12-78); ALBUMIN 2.3 g/dL (3.4-5.0); ALKALINE PHOSPHATASE 85 Units/L (46-116); ASPARTATE AMINO TRANSFERASE 23 Units/L (15-37); BLOOD UREA NITROGEN 10 mg/dL (7-18); CALCIUM 6.9 mg/dL (8.5-10.1); CARBON DIOXIDE 33.9 mmol/L (21-32); CHLORIDE 98 mmol/L (98-107); COR CA(FOR HYPOALB) 8.3 mg/dL (8.5-10.1); COR NA(FOR HYPERGLY) 137 mmol/L (136-145); CREATININE 0.41 mg/dL (0.55-1.02); GLUCOSE 153 mg/dL (65-99); POTASSIUM 3.8 mmol/L (3.5-5.1); SODIUM 136 mmol/L (136-145); TOTAL PROTEIN 6.3 g/dL (6.4-8.2); eGFR NON BLACK RACES > 60 (>60)
[2023-06-17 05:57] LABS: ANISOCYTOSIS 1+; HYPOCHROMASIA SLIGHT; PLATELET MORPHOLOGY COMMENT NORMAL (NORMAL)
[2023-06-17 05:58] LABS: TARGET CELLS SLIGHT
[2023-06-17] MEDS ORDERED: CONSULT PHARMACY - POTASSIUM & MAGNESIUM XX SCH ×2 (06:00→08:00)
--- NOTE | 2023-06-17 06:02 | RAD ---
HISTORYHypoxia, shortness of breath, congestive heart failureSTUDYChest AP [id number]/01/2023FINDINGSThe heart remains enlarged. Aorta is ectatic. Pulmonary venous congestion and interstitial prominence remain unchanged and are likely due to congestive heart failure. No alveolar edema, alveolar infiltrates or areas of consolidation identified. Bilateral pleural effusions are present and unchanged. Bony thorax is unremarkable.IMPRESSIONCardiomegaly with congestive heart failure and bilateral pleural effusions unchanged from the prior examinationElectronically signed by: JOANNE MARCOS (Jun 17, 2023 06:00:57)
[2023-06-17] MEDS: PULMICORT NEB TX 0.5 MG NEB SCH ×2 (08:50→20:30)
[2023-06-17] MEDS: ROCEPHIN VIAL 1 GRAM 1 G in NS 100 ML IV 100 ML IV SCH (08:59)
[2023-06-17] MEDS ORDERED: ALENDRONATE 70 MG PO SCH (09:00)
[2023-06-17] MEDS: GLUCOPHAGE PO SCH ×2 (09:00→20:43)
[2023-06-17] MEDS: SYNTHROID 50 mcg TAB PO SCH (09:00)
[2023-06-17] MEDS: PriLOSEC PO SCH (09:00)
[2023-06-17] MEDS: LASIX IVP SCH (09:00)
[2023-06-17] MEDS: LIPITOR TAB 40 MG PO SCH (09:01)
[2023-06-17] MEDS: MAG-OX TAB PO SCH ×3 (09:01→21:57)
[2023-06-17] MEDS: ASPIRIN EC 81 MG PO SCH (09:02)
[2023-06-17] MEDS: K-DUR TAB 20 MEQ PO SCH (09:02)
[2023-06-17] MEDS: COZAAR PO SCH (09:03)
[2023-06-17] MEDS: OXYBUTYNIN CHLORIDE ER PO SCH (09:03)
[2023-06-17] MEDS: FLONASE NASAL SPRAY ENOSTRIL SCH (09:03)
[2023-06-17] MEDS: CIPRO IV 400 MG PREMIX* 400 MG/200 ML IV.SOLN. IV SCH ×2 (10:45→20:42)
[2023-06-17] MEDS ORDERED: MAG-OX TAB PO SCH (11:00)
--- NOTE | 2023-06-17 12:01 | PCM.PROG ---
Progress Note - Progress Note for Day of Date of Exam: 06/17/23 - Subjective Subjective: IS A 67 YEAR OLD PATIENT OF OURS. SHE IS CURRENTLY INPATIENT STATUS. SHE WAS ADMITTED ON 06/14/23 FOR TREATMENT OF CONGESTIVE HEART FAILURE, HYPOXEMIA, BILATERAL PLEURAL EFFUSION, CIRRHOSIS OF LIVER WITH ASCITES, ELEVATED D-DIMER, ABDOMINAL PAIN, AND DIARRHEA. SHE HAS A PMH OF HTN, GERD, HYPOTHYROIDISM, DM II, HYPERLIPIDEMIA, ARTHRITIS, APPENDECTOMY, , AND TONSILLECTOMY. APPARENTLY, WE HAVE NEVER DIAGNOSED PATIENT WITH CHF OR CIRRHOSIS. TODAY, SHE IS ALERT AND ORIENTED, SITTING UP IN BED ON MORNING ROUNDS. SHE COMPLAINS OF WEAKNESS, SHORTNESS OF BREATH, AND DIARRHEA, BUT DENIES OTHER COMPLAINTS. SHE REPORTS HAVING 5 OR 6 LOOSE STOOLS WITHIN THE PAST 24 HOURS. ON EXAMINATION, HEART IS REGULAR IN RATE AND RHYTHM. BILATERAL LUNGS ARE NOTED WITH DIMINISHED LUNG SOUNDS THROUGHOUT. ABDOMEN IS ROUND, SOFT, AND NON- TENDER WITH HYPERACTIVE BOWEL SOUNDS NOTED. GOOD RANGE OF MOTION NOTED TO UPPER AND LOWER EXTREMITIES WITH TRACE LOWER EXTREMITY EDEMA NOTED. HER VITALS THIS MORNING ARE: 98.1-88-20-97%-123/75. SHE IS CURRENTLY ON OXYGEN VIA NASAL CANNULA AT 4 LPM. LABS WERE OBTAINED. WBC 13.3, RBC 4.31, HGB 11.2, HCT 34.8, PLT COUNT 106, SODIUM 136, POTASSIUM 3.8, CHLORIDE 98, CARBON DIOXIDE 33.9, BUN 10, CREATININE 0.41, GLUCOSE 153, CALCIUM 6.9, MAGNESIUM 1.6, TOTAL BILI 1.80, AST 23, ALT 19, ALK PHOS 85, BNP 26.1, TOTAL PROTEIN 6.3, ALBUMIN 2.3. STOOL CULTURES ARE PENDING. THERE DOES APPEAR TO BE GROWTH OF YEAST IN STOOL. A CHEST XRAY WAS OBTAINED THIS MORNING AND REVEALED: Cardiomegaly with congestive heart failure and bilateral pleural effusions unchanged from the prior examination. CHEST CTA THAT WAS OBTAINED ON 06/14 REVEALED: 1. No acute pulmonary embolus. 2. Moderate pleural effusions, right greater than left with associated atelectasis. There is cardiomegaly. These findings are suggestive of congestive heart. However, cannot entirely exclude underlying infection/pneumonia as there are a few scattered ground-glass nodules and consolidations which may represent atelectasis, pneumonia, or pulmonary edema. Correlate with lab values. 3. Liver cirrhosis with [id number] ascites in the upper outer. SHE IS CURRENTLY RECEIVING FLAGYL 500MG IV Q6H, CIPRO 400MG IV Q12H, ROCEPHIN 1G IV DAILY, XOPENEX NEBS TID, PULMICORT NEBS BID, ROBITUSSIN DM 10ML Q4H PRN, MAALOX 30ML Q4H PRN, MAG OX 800MG TID, POTASSIUM CHLORIDE 20MEQ PO DAILY. HER HOME MEDIC ATIONS OF ASPIRIN, LOSARTAN, OMEPRAZOLE, LEVOTHYROXINE, FLONASE, METFORMIN, OXYBUTYNIN, ATORVASTATIN, AND DICYCLOMINE WERE RESUMED. WE WILL ADD DIFLUCAN 100MG DAILY. WE WILL OBTAIN AN ECHOCARDIOGRAM TODAY. OTHERWISE, WE WILL FOLLOW UP WITH AM LABS AND CONTINUE TO MONITOR. TIME SPENT ON CLINICAL ASSESSMENT, REVIEWING LABS AND IMAGING, DECISION MAKING, AND DOCUMENTATION GREATER THAN 45 MINUTES. - Past Medical Family Social History Past Med/Fam/Surg Hx: No changes since H&P Allergies: Allergies nitrofurantoin [From Macrobid] Allergy (Verified 06/14/23 09:10) - Review of Systems ROS: No change since H&P - Vital Signs and I&O's Vital Signs: Vital Signs Temperature 98.1 F Temperature 98.3 F Temperature 98.3 F Pulse Rate [Right Brachial] 88 Pulse Rate [Right Brachial] 85 Pulse Rate [Right Brachial] 85 Pulse Rate 106 Pulse Rate 90 Respiratory Rate 20 Respiratory Rate 18 Respiratory Rate 18 Blood Pressure [Left Arm] 123/75 Blood Pressure [Left Arm] 111/68 Blood Pressure [Left Arm] 111/68 O2 Sat by Pulse Oximetry 94 O2 Sat by Pulse Oximetry 97 O2 Sat by Pulse Oximetry 98 O2 Sat by Pulse Oximetry 97 O2 Sat by Pulse Oximetry 97 Intake and Output: Intake & Output 06/14/23 06/15/23 06/16/23 06/17/23 11:59 11:59 11:59 11:59 Intake Total 1430 / 1430 1969 1771 / 1771 Output Total 900 / 900 Balance 1430 / 1430 1969 871 / 871 - Physical Exam Oriented: Normal, Time, Person, Place Eyes: Normal Ear: Normal Nose: Normal Throat: Normal Respiratory: Diminished Cardiovascular: Edema (TRACE BLE EDEMA ) Auscultation: Bowel Sounds: Increased Palpation: Normal Tenderness: Diffuse Skin: Normal Musculoskeletal: Normal Psychiatric: Normal Mood Description: Calm Affect: Normal Speech Pattern: Clear, Appropriate - Laboratory and Diagnostics Result Diagrams: 06/17/23 04:55 06/17/23 04:55 Labs: 06/16/23 05:53 Stool Stool Culture - Preliminary 06/16/23 05:53 Stool - Final Laboratory WBC 13.3 X10^3/uL (3.6-10.0) H 06/17/23 04:55 RBC 4.31 X10^6/uL (3.5-5.4) 06/17/23 04:55 Hgb 11.2 g/dL (12.0-16.0) L 06/17/23 04:55 Hct 34.8 % (36.0-47.0) L 06/17/23 04:55 MCV 80.7 fL (80.0-100.0) 06/17/23 04:55 MCH 25.9 pg (27.0-34.0) L 06/17/23 04:55 MCHC 32.1 g/dL (33.0-35.0) L 06/17/23 04:55 RDW 21.1 % (11.6-16.5) H 06/17/23 04:55 Plt Count 106 X10^3/uL (150.0-450.0) L 06/17/23 04:55 Plt Count Comment Decreased (ADEQUATE) A 06/17/23 04:55 MPV 7.1 fL (7.4-11.0) L 06/17/23 04:55 Neut % (Auto) 80.5 % (42.0-75.0) H 06/17/23 04:55 Lymph % (Auto) 6.9 % (21.0-51.0) L 06/17/23 04:55 Gage % (Auto) 8.9 % (0.0-13.0) 06/17/23 04:55 Eos % (Auto) 3.2 % (0.9-2.9) H 06/17/23 04:55 Baso % (Auto) 0.5 % (0.2-1.0) 06/17/23 04:55 Neut # (Auto) 10.7 x10^3/uL (2.2-4.8) H 06/17/23 04:55 Lymph # (Auto) 0.9 X10^3/uL (1.3-2.9) L 06/17/23 04:55 Gage # (Auto) 1.2 x10^3/uL (0.3-0.8) H 06/17/23 04:55 Eos # (Auto) 0.4 x10^3/uL (0.0-0.2) H 06/17/23 04:55 Baso # (Auto) 0.1 X10^3/uL (0.0-0.1) 06/17/23 04:55 Absolute Nucleated RBC 0.0 /100WBC 06/17/23 04:55 Plt Morphology Comment Normal (NORMAL) 06/17/23 04:55 RBC Morphology Abnormal (NORMAL) A 06/17/23 04:55 Hypochromasia Slight A 06/17/23 04:55 Anisocytosis 1+ A 06/17/23 04:55 Target Cells Slight A 06/17/23 04:55 Schistocytes Slight A 06/15/23 05:40 D-Dimer 8.90 ug/ml (0.0-0.57) H 06/14/23 09:12 Sample Site Lbra 06/14/23 09:12 ABG pH 7.490 (7.35-7.45) H 06/14/23 09:12 ABG pCO2 34.0 mmHg (35.0-45.0) L 06/14/23 09:12 ABG pO2 66.0 mmHg (80.0-100.0) L 06/14/23 09:12 ABG HCO3 25.9 mmol/L (22-26) 06/14/23 09:12 ABG O2 Saturation 94.0 % (90-100) 06/14/23 09:12 ABG Base Excess 2.8 mmol/L (-2.0-2.0) H 06/14/23 09:12 Anil Test N/a 06/14/23 09:12 A-a Gradient 91.0 mmHg 06/14/23 09:12 FiO2 28.0 06/14/23 09:12 Blood Gas Comments Pt julia well elj 06/14/23 09:12 Sodium 136 mmol/L (136-145) 06/17/23 04:55 Corrected Sodium 137 mmol/L (136-145) 06/17/23 04:55 Potassium 3.8 mmol/L (3.5-5.1) 06/17/23 04:55 Chloride 98 mmol/L (98-107) 06/17/23 04:55 Carbon Dioxide 33.9 mmol/L (21-32) H 06/17/23 04:55 BUN 10 mg/dL (7-18) 06/17/23 04:55 Creatinine 0.41 mg/dL (0.55-1.02) L 06/17/23 04:55 Est GFR (MDRD) Af Amer > 60 (>60) 06/17/23 04:55 Est GFR (MDRD) Non-Af > 60 (>60) 06/17/23 04:55 Glucose 153 mg/dL (65-99) H 06/17/23 04:55 POC Glucose (mg/dL) 151 mg/dL (65-99) H 06/17/23 11:19 Calcium 6.9 mg/dL (8.5-10.1) L 06/17/23 04:55 Corrected Calcium 8.3 mg/dL (8.5-10.1) L 06/17/23 04:55 Magnesium 1.6 mg/dL (2.0-2.9) L 06/17/23 04:55 Total Bilirubin 1.80 mg/dL (0.2-1.0) H 06/17/23 04:55 AST 23 Units/L (15-37) 06/17/23 04:55 ALT 19 Units/L (12-78) 06/17/23 04:55 Alkaline Phosphatase 85 Units/L (46-116) 06/17/23 04:55 Creatine Kinase 86 Units/L (26-192) 06/14/23 09:12 Troponin I High Sens 21.4 ng/L (4.0-60.0) 06/14/23 09:12 B-Natriuretic Peptide 26.1 pg/mL (0-79) 06/17/23 04:55 Total Protein 6.3 g/dL (6.4-8.2) L 06/17/23 04:55 Albumin 2.3 g/dL (3.4-5.0) L 06/17/23 04:55 Globulin 4.0 g/dL (2.5-4.5) 06/17/23 04:55 Albumin/Globulin Ratio 0.6 Ratio (1.1-2.1) L 06/17/23 04:55 Stl Occult Blood (IFOB) Negative (NEGATIVE) 06/16/23 05:53 Stool for White Cells Positive (NEGATIVE) A 06/16/23 05:53 Stl C. diff Tox B Gene Negative (NEGATIVE) 06/16/23 05:53 Stl C. diff [id number] Presumptive negative (NEGATIVE) 06/16/23 05:53 SARS-CoV-2 (PCR) Negative (NEGATIVE) 06/14/23 09:05 Influenza Type A (PCR) Negative (NEGATIVE) 06/14/23 09:05 Influenza Type B (PCR) Negative (NEGATIVE) 06/14/23 09:05 RSV (PCR) Negative (NEGATIVE) 06/14/23 09:05 - Plan (1) Congestive heart failure (CHF) Status: Acute Qualifiers: Heart failure type: unspecified Heart failure chronicity: acute Qualified Code(s): I50.9 - Heart failure, unspecified Plan: Diuresis with IV Lasix. Check daily BNPs and chest x-rays. Monitor O2 s aturation. (2) Hypoxemia Status: Acute Plan: Supplemental O2 via nasal cannula, diuresis with Lasix. I also will start nebulizer treatments as well. (3) Bilateral pleural effusion Status: Acute Plan: IV diuresis. (4) Cirrhosis of liver with ascites Status: Acute Qualifiers: Hepatic cirrhosis type: unspecified hepatic cirrhosis Qualified Code(s): K74.60 - Unspecified cirrhosis of liver; R18.8 - Other ascites (5) Diarrhea Status: Acute Qualifiers: Diarrhea type: unspecified type Qualified Code(s): R19.7 - Diarrhea, unspecified Plan: STOOL CULTURES PENDING (6) HTN (hypertension) Status: Chronic Qualifiers: Hypertension type: primary hypertension Qualified Code(s): I10 - Essential (primary) hypertension Plan: CONTINUE LOSARTAN (7) Hypothyroidism Status: Chronic Qualifiers: Hypothyroidism type: acquired Qualified Code(s): E03.9 - Hypothyroidism, unspecified Plan: CONTINUE LEVOTHYROXINE (8) DM (diabetes mellitus) Status: Chronic Qualifiers: Diabetes mellitus type: type 2 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
[2023-06-17] MEDS: DIFLUCAN PO SCH (14:53)
[2023-06-17] MEDS: ROBITUSSIN DM PO PRN (16:55)
[2023-06-17] MEDS: BUTT CREAM (COMPOUND) TOP PRN (20:41)
[2023-06-17] MEDS: RESTORIL CAP 15 MG PO PRN (20:43)
[2023-06-18] MEDS: FLAGYL IV PREMIX 500 MG BAG 500 MG/100 ML BAG IV SCH ×2 (03:06→19:25)
[2023-06-18] MEDS: BENTYL CAP 10 MG PO SCH ×3 (05:42→21:00)
[2023-06-18] MEDS: MAG-OX TAB PO SCH ×3 (05:43→21:01)
[2023-06-18] MEDS: XOPENEX 1.25 MG/3 ML NEBULE NEB SCH ×3 (05:50→20:07)
[2023-06-18 06:00] LABS: BASOPHILS # (AUTO) 0.1 X10^3/uL (0.0-0.1); BASOPHILS % (AUTO) 0.3 % (0.2-1.0); EOSINOPHILS # (AUTO) 0.6 x10^3/uL (0.0-0.2); HEMATOCRIT 35.9 % (36.0-47.0); HEMOGLOBIN 11.3 g/dL (12.0-16.0); LYMPHOCYTES # (AUTO) 1.4 X10^3/uL (1.3-2.9); LYMPHOCYTES % (AUTO) 7.5 % (21.0-51.0); MEAN CORPUSCULAR HEMOGLOBIN 25.7 pg (27.0-34.0); MEAN CORPUSCULAR HGB CONC 31.5 g/dL (33.0-35.0); MEAN CORPUSCULAR VOLUME 81.6 fL (80.0-100.0); MONOCYTES # (AUTO) 1.9 x10^3/uL (0.3-0.8); MONOCYTES % (AUTO) 9.9 % (0.0-13.0); NEUTROPHILS # (AUTO) 15.1 x10^3/uL (2.2-4.8); NEUTROPHILS % (AUTO) 79.3 % (42.0-75.0); PLATELET COUNT 121 X10^3/uL (150.0-450.0); RED BLOOD COUNT 4.39 X10^6/uL (3.5-5.4); RED CELL DISTRIBUTION WIDTH 21.1 % (11.6-16.5); WHITE BLOOD COUNT 19.1 X10^3/uL (3.6-10.0)
[2023-06-18 06:16] LABS: ANISOCYTOSIS 1+; HYPOCHROMASIA SLIGHT; PLATELET MORPHOLOGY COMMENT NORMAL (NORMAL)
--- NOTE | 2023-06-18 06:18 | RAD ---
EXAM:Chest AP portableHISTORY:Shortness of breath, congestive heart failure, bilateral pleural effusionsCOMPARISON:06/17/2023FINDINGS:H eart remains enlarged. Aorta is ectatic. Pulmonary venous congestion is present. Interstitial prominence is again identified likely on the basis of edema and unchanged. No alveolar edema, alveolar infiltrates or areas of consolidation identified. Bilateral pleural effusions are present and unchanged. Bony thorax is unremarkable.IMPRESSION:No significant change from the prior examinationTHIS IS AN ELECTRONICALLY VERIFIED FINAL [id number]/2023 6:15 AM - Electronically signed by Alonso Morse MD
[2023-06-18 06:22] LABS: ALANINE AMINOTRANSFERASE 16 Units/L (12-78); ALBUMIN 2.3 g/dL (3.4-5.0); ALKALINE PHOSPHATASE 95 Units/L (46-116); ASPARTATE AMINO TRANSFERASE 25 Units/L (15-37); BLOOD UREA NITROGEN 15 mg/dL (7-18); CARBON DIOXIDE 27.1 mmol/L (21-32); CHLORIDE 95 mmol/L (98-107); COR CA(FOR HYPOALB) 8.4 mg/dL (8.5-10.1); COR NA(FOR HYPERGLY) 133 mmol/L (136-145); CREATININE 0.87 mg/dL (0.55-1.02); GLUCOSE 131 mg/dL (65-99); POTASSIUM 4.4 mmol/L (3.5-5.1); SODIUM 132 mmol/L (136-145); TOTAL PROTEIN 6.4 g/dL (6.4-8.2); eGFR NON BLACK RACES > 60 (>60)
[2023-06-18] MEDS: PULMICORT NEB TX 0.5 MG NEB SCH ×2 (09:00→20:08)
[2023-06-18] MEDS: SYNTHROID 50 mcg TAB PO SCH (10:15)
[2023-06-18] MEDS: K-DUR TAB 20 MEQ PO SCH (10:15)
[2023-06-18] MEDS: GLUCOPHAGE PO SCH ×2 (10:15→20:53)
[2023-06-18] MEDS: PriLOSEC PO SCH (10:15)
[2023-06-18] MEDS: LIPITOR TAB 40 MG PO SCH (10:15)
[2023-06-18] MEDS: ASPIRIN EC 81 MG PO SCH (10:15)
[2023-06-18] MEDS: DIFLUCAN PO SCH (10:16)
[2023-06-18] MEDS: OXYBUTYNIN CHLORIDE ER PO SCH (10:16)
[2023-06-18] MEDS: FLONASE NASAL SPRAY ENOSTRIL SCH (10:16)
[2023-06-18] MEDS: CIPRO IV 400 MG PREMIX* 400 MG/200 ML IV.SOLN. IV SCH ×2 (10:18→20:59)
[2023-06-18] MEDS: COZAAR PO SCH (10:55)
--- NOTE | 2023-06-18 11:15 | PCM.PROG ---
Progress Note - Progress Note for Day of Date of Exam: 06/18/23 - Subjective Subjective: IS A 67 YEAR OLD PATIENT OF OURS. SHE IS CURRENTLY INPATIENT STATUS. SHE WAS ADMITTED ON 06/14/23 FOR TREATMENT OF CONGESTIVE HEART FAILURE, HYPOXEMIA, BILATERAL PLEURAL EFFUSION, CIRRHOSIS OF LIVER WITH ASCITES, ELEVATED D-DIMER, ABDOMINAL PAIN, AND DIARRHEA. SHE HAS A PMH OF HTN, GERD, HYPOTHYROIDISM, DM II, HYPERLIPIDEMIA, ARTHRITIS, APPENDECTOMY, , AND TONSILLECTOMY. APPARENTLY, WE HAVE NEVER DIAGNOSED PATIENT WITH CHF OR CIRRHOSIS. TODAY, SHE IS ALERT AND ORIENTED, SITTING UP IN BED ON MORNING ROUNDS. SHE COMPLAINS OF WEAKNESS AND OCCASIONAL SHORTNESS OF BREATH. SHE REPORTS SLIGHT IMPROVEMENT IN SYMPTOMS SINCE WE SAW HER YESTERDAY. SHE ADMITS TO A DECREASE IN THE FREQUENCY OF DIARRHEA AND ADMITS TO ONLY HAVING ONE LOOSE STOOL YESTERDAY. ON EXAMINATION, HEART IS REGULAR IN RATE AND RHYTHM. BILATERAL LUNGS ARE NOTED WITH DIMINISHED LUNG SOUNDS THROUGHOUT. ABDOMEN IS ROUND, SOFT, AND NON-TENDER WITH HYPERACTIVE BOWEL SOUNDS NOTED. GOOD RANGE OF MOTION NOTED T O UPPER AND LOWER EXTREMITIES WITH TRACE LOWER EXTREMITY EDEMA NOTED. HER VITALS THIS MORNING ARE: 97.7-99-20-96%-111/62. SHE IS CURRENTLY ON OXYGEN VIA NASAL CANNULA AT 4 LPM. LABS WERE OBTAINED. WBC 19.1, RBC 4.39, HGB 11.3, HCT 35.9, PLT COUNT 121, SODIUM 132, POTASSIUM 4.4, CHLORIDE 95, BUN 15, CREATININE 0.87, GLUCOSE 131, CALCIUM 7.0, TOTAL BILI 1.70, AST 25, ALT 16, ALK PHOS 95, CRP 92.60, BNP 29.9, TOTAL PROTEIN 6.4, ALBUMIN 2.3. STOOL CULTURES ARE PENDING. THERE IS GROWTH OF YEAST IN STOOL. A CHEST XRAY WAS OBTAINED THIS MORNING AND REVEALED: Heart remains enlarged. Aorta is ectatic. Pulmonary venous congestion is present. Interstitial prominence is again identified likely on the basis of edema and unchanged. No alveolar edema, alveolar infiltrates or areas of consolidation identified. Bilateral pleural effusions are present and unchanged. Bony thorax is unremarkable. AN ECHOCARDIOGRAM WAS OBTAINED YESTERDAY AND REVEALED AN EJECTION FRACTION OF 63%. SHE IS CURRENTLY RECEIVING FLAGYL 500MG IV Q6H, CIPRO 400MG IV Q12H, ROCEPHIN 1G IV DAILY, XOPENEX NEBS TID, PULMICORT NEBS BID, ROBITUSSIN DM 10ML Q4H PRN, DIFLUCAN 100MG PO DAILY, LASIX 40MG IV DAILY, MAALOX 30ML Q4H PRN, MAG OX 800MG TID, POTASSIUM CHLORIDE 20MEQ PO DAILY. HER HOME MEDICATIONS OF ASPIRIN, LOSARTAN, OMEPRAZOLE, LEVOTHYROXINE, FLONASE, METFORMIN, OXYBUTYNIN, ATORVASTATIN, AND DICYCLOMINE WERE RESUMED. WE WILL DISCONTINUE THE FLAGYL AND ROCEPHIN TODAY. WE WILL ADD FORTAZ 1G IV Q8H. WE WILL CHECK A HEPATITS PANEL, ABDOMEN CT WITH ATTN TO THE LIVER, AND A CRP LEVEL. OTHERWISE, WE WILL FOLLOW UP WITH AM LABS AND CONTINUE TO MONITOR. TIME SPENT ON CLINICAL ASSESSMENT, REVIEWING LABS AND IMAGING, DEC ISION MAKING, AND DOCUMENTATION GREATER THAN 45 MINUTES. - Past Medical Family Social History Past Med/Fam/Surg Hx: No changes since H&P Allergies: Allergies nitrofurantoin [From Macrobid] Allergy (Verified 06/14/23 09:10) - Review of Systems ROS: No change since H&P - Vital Signs and I&O's Vital Signs: Vital Signs Temperature 97.7 F Pulse Rate [Right Brachial] 99 Pulse Rate 107 Respiratory Rate 20 Blood Pressure [Left Arm] 111/62 O2 Sat by Pulse Oximetry 96 O2 Sat by Pulse Oximetry 96 Intake and Output: Intake & Output 06/15/23 06/16/23 06/17/23 06/18/23 11:59 11:59 11:59 11:59 Intake Total 1430 / 1430 1969 1771 / 1771 1399 / 1399 Output Total 900 / 900 Balance 1430 / 1430 1969 871 / 871 1399 / 1399 - Physical Exam Oriented: Normal, Time, Person, Place Eyes: Normal Ear: Normal Nose: Normal Throat: Normal Respiratory: Diminished Cardiovascular: Edema (TRACE BLE EDEMA ) : Normal Auscultation: Bowel Sounds: Increased Palpation: Normal Tenderness: Diffuse Skin: Normal Musculoskeletal: Normal Psychiatric: Normal Mood Description: Calm Affect: Normal Speech Pattern: Clear, Appropriate - Laboratory and Diagnostics Result Diagrams: 06/19/23 04:10 06/19/23 04:10 Labs: 06/16/23 05:53 Stool Stool Culture - Preliminary 06/16/23 05:53 Stool - Final Laboratory WBC 19.1 X10^3/uL (3.6-10.0) H 06/18/23 05:11 RBC 4.39 X10^6/uL (3.5-5.4) 06/18/23 05:11 Hgb 11.3 g/dL (12.0-16.0) L 06/18/23 05:11 Hct 35.9 % (36.0-47.0) L 06/18/23 05:11 MCV 81.6 fL (80.0-100.0) 06/18/23 05:11 MCH 25.7 pg (27.0-34.0) L 06/18/23 05:11 MCHC 31.5 g/dL (33.0-35.0) L 06/18/23 05:11 RDW 21.1 % (11.6-16.5) H 06/18/23 05:11 Plt Count 121 X10^3/uL (150.0-450.0) L 06/18/23 05:11 Plt Count Comment Decreased (ADEQUATE) A 06/18/23 05:11 MPV 8.0 fL (7.4-11.0) 06/18/23 05:11 Neut % (Auto) 79.3 % (42.0-75.0) H 06/18/23 05:11 Lymph % (Auto) 7.5 % (21.0-51.0) L 06/18/23 05:11 [place] % (Auto) 9.9 % (0.0-13.0) 06/18/23 05:11 Eos % (Auto) 3.0 % (0.9-2.9) H 06/18/23 05:11 Baso % (Auto) 0.3 % (0.2-1.0) 06/18/23 05:11 Neut # (Auto) 15.1 x10^3/uL (2.2-4.8) H 06/18/23 05:11 Lymph # (Auto) 1.4 X10^3/uL (1.3-2.9) 06/18/23 05:11 [place] # (Auto) 1.9 x10^3/uL (0.3-0.8) H 06/18/23 05:11 Eos # (Auto) 0.6 x10^3/uL (0.0-0.2) H 06/18/23 05:11 Baso # (Auto) 0.1 X10^3/uL (0.0-0.1) 06/18/23 05:11 Absolute Nucleated RBC 0.0 /100WBC 06/18/23 05:11 Plt Morphology Comment Normal (NORMAL) 06/18/23 05:11 RBC Morphology Abnormal (NORMAL) A 06/18/23 05:11 Hypochromasia Slight A 06/18/23 05:11 Anisocytosis 1+ A 06/18/23 05:11 Target Cells Slight A 06/17/23 04:55 Schistocytes Slight A 06/15/23 05:40 D-Dimer 8.90 ug/ml (0.0-0.57) H 06/14/23 09:12 Sample Site Lbra 06/14/23 09:12 ABG pH 7.490 (7.35-7.45) H 06/14/23 09:12 ABG pCO2 34.0 mmHg (35.0-45.0) L 06/14/23 09:12 ABG pO2 66.0 mmHg (80.0-100.0) L 06/14/23 09:12 ABG HCO3 25.9 mmol/L (22-26) 06/14/23 09:12 ABG O2 Saturation 94.0 % (90-100) 06/14/23 09:12 ABG Base Excess 2.8 mmol/L (-2.0-2.0) H 06/14/23 09:12 Anil Test N/a 06/14/23 09:12 A-a Gradient 91.0 mmHg 06/14/23 09:12 FiO2 28.0 06/14/23 09:12 Blood Gas Comments Pt julia well elj 06/14/23 09:12 Sodium 132 mmol/L (136-145) L 06/18/23 05:11 Corrected Sodium 133 mmol/L (136-145) L 06/18/23 05:11 Potassium 4.4 mmol/L (3.5-5.1) 06/18/23 05:11 Chloride 95 mmol/L (98-107) L 06/18/23 05:11 Carbon Dioxide 27.1 mmol/L (21-32) 06/18/23 05:11 BUN 15 mg/dL (7-18) 06/18/23 05:11 Creatinine 0.87 mg/dL (0.55-1.02) 06/18/23 05:11 Est GFR (MDRD) Af Amer > 60 (>60) 06/18/23 05:11 Est GFR (MDRD) Non-Af > 60 (>60) 06/18/23 05:11 Glucose 131 mg/dL (65-99) H 06/18/23 05:11 POC Glucose (mg/dL) 133 mg/dL (65-99) H 06/18/23 04:57 Calcium 7.0 mg/dL (8.5-10.1) L 06/18/23 05:11 Corrected Calcium 8.4 mg/dL (8.5-10.1) L 06/18/23 05:11 Magnesium 1.6 mg/dL (2.0-2.9) L 06/17/23 04:55 Total Bilirubin 1.70 mg/dL (0.2-1.0) H 06/18/23 05:11 AST 25 Units/L (15-37) 06/18/23 05:11 ALT 16 Units/L (12-78) 06/18/23 05:11 Alkaline Phosphatase 95 Units/L (46-116) 06/18/23 05:11 Creatine Kinase 86 Units/L (26-192) 06/14/23 09:12 Troponin I High Sens 21.4 ng/L (4.0-60.0) 06/14/23 09:12 C-Reactive Protein 92.60 mg/L (0-3.0) H 06/18/23 05:11 B-Natriuretic Peptide 29.9 pg/mL (0-79) 06/18/23 05:11 Total Protein 6.4 g/dL (6.4-8.2) 06/18/23 05:11 Albumin 2.3 g/dL (3.4-5.0) L 06/18/23 05:11 Globulin 4.1 g/dL (2.5-4.5) 06/18/23 05:11 Albumin/Globulin Ratio 0.6 Ratio (1.1-2.1) L 06/18/23 05:11 Stl Occult Blood (IFOB) Negative (NEGATIVE) 06/16/23 05:53 Stool for White Cells Positive (NEGATIVE) A 06/16/23 05:53 Stl C. diff Tox B Gene Negative (NEGATIVE) 06/16/23 05:53 Stl C. diff [id number] Presumptive negative (NEGATIVE) 06/16/23 05:53 SARS-CoV-2 (PCR) Negative (NEGATIVE) 06/14/23 09:05 Influenza Type A (PCR) Negative (NEGATIVE) 06/14/23 09:05 Influenza Type B (PCR) Negative (NEGATIVE) 06/14/23 09:05 RSV (PCR) Negative (NEGATIVE) 06/14/23 09:05 - Plan (1) Bilateral pleural effusion Status: Acute Plan: IV diuresis, IV antibiotics, neb tx, continue to monitor (2) Congestive heart failure (CHF) Status: Acute Qualifiers: Heart failure type: unspecified Heart failure chronicity: acute Qualified Code(s): I50.9 - Heart failure, unspecified Plan: Diuresis with IV Lasix. Check daily BNPs and chest x-rays. Monitor O2 saturation. (3) Hypoxemia Status: Acute Plan: Supplemental O2 via nasal cannula, diuresis with Lasix. I also will start nebulizer treatments as well. (4) Cirrhosis of liver with ascites Status: Acute Qualifiers: Hepatic cirrhosis type: unspecified hepatic cirrhosis Qualified Code(s): K74.60 - Unspecified cirrhosis of liver; R18.8 - Other ascites (5) Diarrhea Status: Acute Qualifiers: Diarrhea type: unspecified type Qualified Code(s): R19.7 - Diarrhea, unspecified Plan: STOOL CULTURES PENDING (6) HTN (hypertension) Status: Chronic Qualifiers: Hypertension type: primary hypertension Qualified Code(s): I10 - Essential (primary) hypertension Plan: CONTINUE LOSARTAN (7) Hypothyroidism Status: Chronic Qualifiers: Hypothyroidism type: acquired Qualified Code(s): E03.9 - Hypothyroidism, unspecified Plan: CONTINUE LEVOTHYROXINE (8) DM (diabetes mellitus) Status: Chronic Qualifiers: Diabetes mellitus type: type 2 Diabetes mellitus penitentiary insulin use: with terminal superintendent use Diabetes mellitus complication status: with hyperglycemia Qualified Code(s): E11.65 - Type 2 diabetes mellitus with hyperglycemia; Z79.4 - buttermaker (current) use of insulin Plan: CONTINUE METFORMIN (9) Hyperlipidemia Status: Chronic Qualifiers: Hyperlipidemia type: mixed hyperlipidemia Qualified Code(s): E78.2 - Mixed hyperlipidemia Plan: CONTINUE ATORVASTATIN
[2023-06-18] MEDS: FORTAZ or TAZICEF VIAL INJ 1 G in NS 100 ML IV 100 ML IV SCH ×3 (13:00→22:00)
[2023-06-18] MEDS ORDERED: LASIX IVP ONE ×2 (14:11→14:12)
[2023-06-18 14:19] LABS: ABG BASE EXCESS 0.8 mmol/L (-2.0-2.0); ABG HCO3 25.3 mmol/L (22-26)
[2023-06-18 14:20] LABS: ABG ALLEN TEST POS
--- NOTE | 2023-06-18 14:23 | EKG ---
Test Reason : tachycardia, SOB Blood Pressure : */* mmHG Vent. Rate : 118 BPM Atrial Rate : 118 BPM P-R Int : 114 ms QRS Dur : 84 ms QT Int : 332 ms P-R-T Axes : 29 -8 26 degrees QTc Int : 465 ms Sinus tachycardia Possible Anterior infarct (cited on or before 14-JUN-2023) Abnormal ECG When compared with ECG of 14-JUN-2023 09:20, No significant change was found Confirmed by Raffaele Carey MD ([id number]) on 06/18/2023 2:27:48 PM Referred By: Confirmed By: Raffaele Carey MD
[2023-06-18] MEDS ORDERED: ZOFRAN INJ 4 MG VIAL IVP PRN (14:35)
--- NOTE | 2023-06-18 14:39 | RAD ---
EXAM:CHEST x-ray, 1 VIEWHISTORY:SUDDEN INCREASED SOB; -COMPARISON:X-ray from the same dayFINDINGS:Persistent CHF and pulmonary edema with [id number] pleural effusions. No evidence of pneumothorax.IMPRESSION:Persistent CHF, pulmonary edema, and pleural effusions. Pleural effusions may have slightly worsened but differences could be due to technical factors.THIS IS AN ELECTRONICALLY VERIFIED FINAL [id number]/2023 2:21 PM - Electronically signed by Du Ann MD
--- NOTE | 2023-06-18 14:50 | CT ---
EXAM:CT abdomen without IV contrastHISTORY:hypoxia, sudden worsening, CHF-COMPARISON:Chest x-ray from same dayTECHNIQUE:Multiple axial images of the abdomen are obtained without the administration of IV contrast. Dose reduction techniques including Automated Exposure Control (AEC) and adjustment of mA and kV were utilized.FINDINGS:Most of the chest is included on the study. There are [id number] bilateral pleural effusions with possible areas of loculation. Multiple rounded densities are seen in the lungs. Some of these densities are probable rounded atelectasis but some of the densities appear to be lung nodules. Consider diagnostic thoracentesis. There is probable CHF and pulmonary edema. No lymphadenopathy is seen in the visualized portions of the mediastinum.Changes of cirrhosis are seen in the liver with mild ascites. There is mild splenomegaly. No varices are identified. Gallbladder and pancreas appear normal. No adrenal nodules. Possible sub mm nonobstructing left renal stone is seen. No right renal stone is suggested. There is no hydronephrosis.There is diffuse wall thickening and haziness of the small and large bowel loops which may be associated with the cirrhosis and ascites. Gastroenteritis or colitis can not be excluded.IMPRESSION:CHF and pulmonary edema with moderate to large bilateral pleural effusions.Probable areas of rounded atelectasis are seen in the lungs but some of the nodular areas could possibly be lung masses. Consider evaluation with diagnostic thoracentesis.Cirrhosis is seen with splenomegaly. There is only mild ascites.Mild wall thickening in the small and large bowel may be associated with the ascites but consider gastroenteritis or colitis.THIS IS AN ELECTRONICALLY VERIFIED FINAL [id number]/2023 2:47 PM - Electronically signed by Du Ann MD
[2023-06-18 16:16] LABS: BILIRUBIN,URINE NEGATIVE (NEGATIVE); BLOOD/HEMOGLOBIN,URINE 1+ (NEGATIVE); GLUCOSE, URINE NEGATIVE (NEGATIVE); KETONES,URINE NEGATIVE (NEGATIVE); LEUKOCYTE ESTERASE ,URINE 1+ (NEGATIVE); NITRITES,URINE NEGATIVE (NEGATIVE); PROTEIN,URINE 1+ (NEGATIVE); UROBILINOGEN,URINE NORMAL (NORMAL)
[2023-06-18 16:34] LABS: APPEARANCE,URINE CLEAR (CLEAR); COLOR,URINE DARK YELLOW (YELLOW)
[2023-06-18 16:35] LABS: BACTERIA,URINE NEGATIVE /HPF (NEGATIVE); GRANULAR CASTS,URINE MODERATE /LPF (NEGATIVE); HYALINE CASTS, URINE MODERATE /LPF (NEGATIVE); RBC,URINE 0-2 /HPF (0-3); RENAL EPITHELIAL CELLS,URINE RARE /HPF (NEGATIVE); SQUAMOUS EPITHELIAL CELL,UR RARE /HPF (NEGATIVE)
[2023-06-18] MEDS: ROBITUSSIN DM PO PRN (17:44)
[2023-06-18] MEDS ORDERED: SOLU-Medrol 40 MG VIAL IVP ONE (17:55)
[2023-06-18] MEDS: ROCEPHIN VIAL 1 GRAM 1 G in NS 100 ML IV 100 ML IV SCH (19:26)
[2023-06-18] MEDS: LASIX IVP SCH (19:26)
[2023-06-18] MEDS: MORPHINE SULFATE INJ 2 MG INJ IVP PRN (21:30)
[2023-06-18] MEDS: SOLU-Medrol 40 MG VIAL IVP SCH (21:31)
[2023-06-18] MEDS: BUTT CREAM (COMPOUND) TOP PRN (23:45)
[2023-06-19] MEDS: XOPENEX 1.25 MG/3 ML NEBULE NEB SCH ×3 (05:00→20:27)
[2023-06-19] MEDS: BENTYL CAP 10 MG PO SCH ×3 (05:09→21:09)
[2023-06-19] MEDS: MAG-OX TAB PO SCH ×3 (05:10→21:09)
[2023-06-19] MEDS: SOLU-Medrol 40 MG VIAL IVP SCH ×3 (05:10→21:11)
[2023-06-19] MEDS: FORTAZ or TAZICEF VIAL INJ 1 G in NS 100 ML IV 100 ML IV SCH ×3 (05:10→21:48)
[2023-06-19 05:23] LABS: BASOPHILS # (AUTO) 0.1 X10^3/uL (0.0-0.1); BASOPHILS % (AUTO) 0.4 % (0.2-1.0); EOSINOPHILS # (AUTO) 0.1 x10^3/uL (0.0-0.2); EOSINOPHILS % (AUTO) 0.3 % (0.9-2.9); HEMATOCRIT 36.2 % (36.0-47.0); HEMOGLOBIN 11.4 g/dL (12.0-16.0); LYMPHOCYTES # (AUTO) 1.1 X10^3/uL (1.3-2.9); LYMPHOCYTES % (AUTO) 4.9 % (21.0-51.0); MEAN CORPUSCULAR HGB CONC 31.6 g/dL (33.0-35.0); MEAN CORPUSCULAR VOLUME 82.3 fL (80.0-100.0); MEAN PLATELET VOLUME 8.2 fL (7.4-11.0); MONOCYTES # (AUTO) 1.3 x10^3/uL (0.3-0.8); MONOCYTES % (AUTO) 5.7 % (0.0-13.0); NEUTROPHILS # (AUTO) 20.9 x10^3/uL (2.2-4.8); NEUTROPHILS % (AUTO) 88.7 % (42.0-75.0); PLATELET COUNT 138 X10^3/uL (150.0-450.0); RED CELL DISTRIBUTION WIDTH 21.1 % (11.6-16.5); WHITE BLOOD COUNT 23.5 X10^3/uL (3.6-10.0)
[2023-06-19 05:37] LABS: ALBUMIN 2.2 g/dL (3.4-5.0); CARBON DIOXIDE 26.1 mmol/L (21-32); COR CA(FOR HYPOALB) 8.4 mg/dL (8.5-10.1); CREATININE 1.2 mg/dL (0.55-1.02); TOTAL PROTEIN 6.6 g/dL (6.4-8.2)
[2023-06-19 05:43] LABS: POTASSIUM 5.7 mmol/L (3.5-5.1)
[2023-06-19 06:09] LABS: BAND NEUTROPHILS % 3 % (0-10); METAMYELOCYTES % 2
[2023-06-19 06:10] LABS: ANISOCYTOSIS 1+; PLATELET MORPHOLOGY COMMENT NORMAL (NORMAL)
--- NOTE | 2023-06-19 06:27 | RAD ---
EXAM:Chest AP portableHISTORY:Shortness of breath, bilateral pleural effusions, congestive heart failureCOMPARISON:06/18/2023FINDINGS:Hea rt remains enlarged. Pulmonary venous congestion and interstitial edema present unchanged. Bilateral moderately large pleural effusions are again identified unchanged from the prior examination. Bony thorax is unremarkable.IMPRESSION:No change cardiomegaly with congestive heart failureNo change bilateral moderately large pleural effusionsTHIS IS AN ELECTRONICALLY VERIFIED FINAL [id number]/2023 6:23 AM - Electronically signed by Alonso Morse MD
[2023-06-19] MEDS: PULMICORT NEB TX 0.5 MG NEB SCH ×2 (09:29→20:27)
[2023-06-19] MEDS ORDERED: NS 250 ML IV 250 ML IV ONE (10:21)
[2023-06-19] MEDS: DIFLUCAN PO SCH (10:22)
[2023-06-19] MEDS: OXYBUTYNIN CHLORIDE ER PO SCH (10:23)
[2023-06-19] MEDS: GLUCOPHAGE PO SCH ×2 (10:23→20:37)
[2023-06-19] MEDS: COZAAR PO SCH (10:24)
[2023-06-19] MEDS: PriLOSEC PO SCH (10:24)
[2023-06-19] MEDS: LIPITOR TAB 40 MG PO SCH (10:24)
[2023-06-19] MEDS: SYNTHROID 50 mcg TAB PO SCH (10:26)
[2023-06-19] MEDS: ASPIRIN EC 81 MG PO SCH (10:27)
[2023-06-19] MEDS: FLONASE NASAL SPRAY ENOSTRIL SCH (10:27)
[2023-06-19] MEDS: LASIX IVP SCH ×2 (10:28→17:15)
[2023-06-19] MEDS: CIPRO IV 400 MG PREMIX* 400 MG/200 ML IV.SOLN. IV SCH ×2 (10:29→20:36)
--- NOTE | 2023-06-19 11:47 | PCM.PROG ---
Progress Note - Progress Note for Day of Date of Exam: 06/19/23 - Subjective Subjective: IS A 67 YEAR OLD PATIENT OF OURS. SHE IS CURRENTLY INPATIENT STATUS. SHE WAS ADMITTED ON 06/14/23 FOR TREATMENT OF CONGESTIVE HEART FAILURE, HYPOXEMIA, BILATERAL PLEURAL EFFUSION, CIRRHOSIS OF LIVER WITH ASCITES, ELEVATED D-DIMER, ABDOMINAL PAIN, AND DIARRHEA. SHE HAS A PMH OF HTN, GERD, HYPOTHYROIDISM, DM II, HYPERLIPIDEMIA, ARTHRITIS, APPENDECTOMY, , AND TONSILLECTOMY. THE CHF AND CIRRHOSIS ARE NEW DX FOR HER. SHE HAD INCREASED SHORTNESS OF BREATH YESTERDAY AND HER SATURATIONS DECREASED TO 86% WHILE ON 4 LPM NASAL CANNULA. RESPIRATORY INCREASED HER OXYGEN TO 7L VIA SIMPLE FACE MASK. SATURATIONS THEN INCREASED TO THE UPPER 90s. SHE WAS TRANSFERRED TO THE INTENSIVE [facility]ARE UNIT FOR CLOSER OBSERVATION. TODAY, SHE IS ALERT AND ORIENTED, LYING UP IN BED ON MORNING ROUNDS. SHE COMPLAINS OF WEAKNESS AND PERSISTENT SHORTNESS OF BREATH. SHE CONTINUES TO HAVE A NON-PRODUCTIVE COUGH. ON EXAMINATION, HEART IS REGULAR IN RATE AND RHYTHM. BILATERAL LUNGS ARE NOTED WITH DIMINISHED LUNG SOUNDS THROUGHOUT. ABDOMEN IS ROUND, SOFT, AND NON-TENDER WITH HYPERACTIVE BOWEL SOUNDS NOTED. GOOD RANGE OF MOTION NOTED TO UPPER AND LOWER EXTREMITIES WITH TRACE LOWER EXTREMITY EDEMA NOTED. HER VITALS THIS MORNING ARE: 98.4-97-25-94%-132/74. SHE IS CURRENTLY ON HEATED HIGH FLOW OXYGEN AT 71% FI02. LABS WERE OBTAINED. WBC 23.5, RBC 4.40, HGB 11.4, HCT 36.2, PLT COUNT 138, SODIUM 128, POTASSIUM 5.7, CHLORIDE 92, BUN 27, CREATININE 1.20, GLUCOSE 195, CALCIUM 7.0, TOTAL BILI 1.90, AST 26, ALT 20, ALK PHOS 94, CRP 121.10, BNP 63.1, ALBUMIN 2.2. A CHEST XRAY WAS OBTAINED THIS MORNING AND REVEALED: Heart remains enlarged. Pulmonary venous congestion and interstitial edema present unchanged. Bilateral moderately large pleural effusions are again identified unchanged from the prior examination. Bony thorax is unremarkable. AN ABDOMEN CT WITH CONTRAST WAS OBTAINED YESTERDAY AND REVEALED: CHF and pulmonary edema with moderate tolarge bilateral pleural effusions. Probable areas of rounded atelectasis are seen in the lungs but some of the nodular areas could possibly be lung masses. Consider evaluation with diagnostic thoracentesis. Cirrhosis is seen with splenomegaly. There is only mild ascites. Mild wall thickening in the small and large bowel may be associated with the ascites but consider gastroenteritis or colitis. SHE IS CURRENTLY RECEIVING CIPRO 400MG IV Q12H, FORTAZ 1G IV Q8H, SOLU-MEDROL 40MG IV Q8H, MORPHINE SULFATE 1-2MG IV Q4H PRN, ZOFRAN 4MG IV Q6H PRN, XOPENEX NEBS TID, PULMICORT NEBS BID, ROBITUSSIN DM 10ML Q4H PRN, DIFLUCAN 100MG PO DAILY, LASIX 20MG IV BID, MAALOX 30ML Q4H PRN, MAG OX 800MG TID, POTASSIUM CHLORIDE 20MEQ PO DAILY. HER HOME MEDICATIONS OF ASPIRIN, LOSARTAN, OMEPRAZOLE, LEVOTHYROXINE, FLONASE, METFORMIN, OXYBUTYNIN, ATORVASTATIN, AND DICYCLOMINE WERE RESUMED. TODAY, WE WILL CONSULT FOR POSSIBLE THORACENTESIS. WE WILL SEND PLEURAL FLUID OFF FOR ANALYSIS. WE WILL ALSO CONSULT FOR NEW FINDINGS OF CIRRHOSIS. OTHERWISE, WE WILL FOLLOW UP WITH AM LABS AND CONTINUE TO MONITOR. TIME SPENT ON CLINICAL ASSESSMENT, REVI PARMAR LABS AND IMAGING, DECISION MAKING, AND DOCUMENTATION GREATER THAN 45 MINUTES. - Past Medical Family Social History Past Med/Fam/Surg Hx: No changes since H&P Allergies: Allergies nitrofurantoin [From Macrobid] Allergy (Verified 06/14/23 09:10) - Review of Systems ROS: No change since H&P - Vital Signs and I&O's Vital Signs: Vital Signs Temperature 98.4 F Temperature 98.1 F Pulse Rate 97 Pulse Rate 95 Pulse Rate 91 Pulse Rate 83 Respiratory Rate 25 Respiratory Rate 25 Respiratory Rate 25 Respiratory Rate 16 Respiratory Rate 22 Blood Pressure 132/74 Blood Pressure 122/61 Blood Pressure 128/71 Blood Pressure 113/75 O2 Sat by Pulse Oximetry 92 O2 Sat by Pulse Oximetry 94 O2 Sat by Pulse Oximetry 92 O2 Sat by Pulse Oximetry 93 O2 Sat by Pulse Oximetry 95 Intake and Output: Intake & Output 06/16/23 06/17/23 06/18/23 06/19/23 11:59 11:59 11:59 11:59 Intake Total 1969 1771 / 1771 1399 / 1399 1170 / 1170 Output Total 900 / 900 547 / 547 Balance 1969 871 / 871 1399 / 1399 623 / 623 - Physical Exam Oriented: Normal, Time, Person, Place Eyes: Normal Ear: Normal Nose: Normal Throat: Normal Respiratory: Diminished Cardiovascular: Edema (TRACE BLE EDEMA ) : Normal Auscultation: Bowel Sounds: Normal Palpation: Normal Tenderness: Diffuse Skin: Normal Musculoskeletal: Normal Psychiatric: Normal Mood Description: Calm Affect: Normal Speech Pattern: Clear, Appropriate - Laboratory and Diagnostics Result Diagrams: 06/19/23 04:10 06/19/23 04:10 Labs: 06/16/23 05:53 Stool Stool Culture - Preliminary 06/16/23 05:53 Stool - Final Laboratory WBC 23.5 X10^3/uL (3.6-10.0) H 06/19/23 04:10 RBC 4.40 X10^6/uL (3.5-5.4) 06/19/23 04:10 Hgb 11.4 g/dL (12.0-16.0) L 06/19/23 04:10 Hct 36.2 % (36.0-47.0) 06/19/23 04:10 MCV 82.3 fL (80.0-100.0) 06/19/23 04:10 MCH 26.0 pg (27.0-34.0) L 06/19/23 04:10 MCHC 31.6 g/dL (33.0-35.0) L 06/19/23 04:10 RDW 21.1 % (11.6-16.5) H 06/19/23 04:10 Plt Count 138 X10^3/uL (150.0-450.0) L 06/19/23 04:10 Plt Count Comment Decreased (ADEQUATE) A 06/19/23 04:10 MPV 8.2 fL (7.4-11.0) 06/19/23 04:10 Neut % (Auto) 88.7 % (42.0-75.0) H 06/19/23 04:10 Lymph % (Auto) 4.9 % (21.0-51.0) L 06/19/23 04:10 [place] % (Auto) 5.7 % (0.0-13.0) 06/19/23 04:10 Eos % (Auto) 0.3 % (0.9-2.9) L 06/19/23 04:10 Baso % (Auto) 0.4 % (0.2-1.0) 06/19/23 04:10 Neut # (Auto) 20.9 x10^3/uL (2.2-4.8) H 06/19/23 04:10 Lymph # (Auto) 1.1 X10^3/uL (1.3-2.9) L 06/19/23 04:10 [place] # (Auto) 1.3 x10^3/uL (0.3-0.8) H 06/19/23 04:10 Eos # (Auto) 0.1 x10^3/uL (0.0-0.2) 06/19/23 04:10 Baso # (Auto) 0.1 X10^3/uL (0.0-0.1) 06/19/23 04:10 Absolute Nucleated RBC 0.0 /100WBC 06/19/23 04:10 Total Counted 100 06/19/23 04:10 Neutrophils % (Manual) 87 % (39-76) H 06/19/23 04:10 Band Neutrophils % 3 % (0-10) 06/19/23 04:10 Lymphocytes % (Manual) 3 % (13-43) L 06/19/23 04:10 Monocytes % (Manual) 5 % (4-9) 06/19/23 04:10 Metamyelocytes % 2 06/19/23 04:10 Plt Morphology Comment Normal (NORMAL) 06/19/23 04:10 RBC Morphology Abnormal (NORMAL) A 06/19/23 04:10 Hypochromasia Slight A 06/18/23 05:11 Anisocytosis 1+ A 06/19/23 04:10 Target Cells Slight A 06/17/23 04:55 Schistocytes Slight A 06/15/23 05:40 D-Dimer 8.90 ug/ml (0.0-0.57) H 06/14/23 09:12 Sample Site Rr 06/18/23 14:14 ABG pH 7.420 (7.35-7.45) 06/18/23 14:14 ABG pCO2 39.0 mmHg (35.0-45.0) 06/18/23 14:14 ABG pO2 74.0 mmHg (80.0-100.0) L 06/18/23 14:14 ABG HCO3 25.3 mmol/L (22-26) 06/18/23 14:14 ABG O2 Saturation 95.0 % (90-100) 06/18/23 14:14 ABG Base Excess 0.8 mmol/L (-2.0-2.0) 06/18/23 14:14 Anil Test Pos 06/18/23 14:14 A-a Gradient 234.0 mmHg 06/18/23 14:14 FiO2 50.0 06/18/23 14:14 Blood Gas Comments Tami well gmb 06/18/23 14:14 Sodium 128 mmol/L (136-145) L 06/19/23 04:10 Corrected Sodium 130 mmol/L (136-145) L 06/19/23 04:10 Potassium 5.7 mmol/L (3.5-5.1) H 06/19/23 04:10 Chloride 92 mmol/L (98-107) L 06/19/23 04:10 Carbon Dioxide 26.1 mmol/L (21-32) 06/19/23 04:10 BUN 27 mg/dL (7-18) H 06/19/23 04:10 Creatinine 1.20 mg/dL (0.55-1.02) H 06/19/23 04:10 Est GFR (MDRD) Af Amer 58 (>60) L 06/19/23 04:10 Est GFR (MDRD) Non-Af 48 (>60) L 06/19/23 04:10 Glucose 195 mg/dL (65-99) H 06/19/23 04:10 POC Glucose (mg/dL) 223 mg/dL (65-99) H 06/19/23 05:24 Lactic Acid 5.0 mmol/L (0.4-2.0) H 06/19/23 09:11 Calcium 7.0 mg/dL (8.5-10.1) L 06/19/23 04:10 Corrected Calcium 8.4 mg/dL (8.5-10.1) L 06/19/23 04:10 Magnesium 1.6 mg/dL (2.0-2.9) L 06/17/23 04:55 Total Bilirubin 1.90 mg/dL (0.2-1.0) H 06/19/23 04:10 AST 26 Units/L (15-37) 06/19/23 04:10 ALT 20 Units/L (12-78) 06/19/23 04:10 Alkaline Phosphatase 94 Units/L (46-116) 06/19/23 04:10 Creatine Kinase 86 Units/L (26-192) 06/14/23 09:12 Troponin I High Sens 21.4 ng/L (4.0-60.0) 06/14/23 09:12 C-Reactive Protein 121.10 mg/L (0-3.0) H 06/19/23 04:10 B-Natriuretic Peptide 63.1 pg/mL (0-79) 06/19/23 04:10 Total Protein 6.6 g/dL (6.4-8.2) 06/19/23 04:10 Albumin 2.2 g/dL (3.4-5.0) L 06/19/23 04:10 Globulin 4.4 g/dL (2.5-4.5) 06/19/23 04:10 Albumin/Globulin Ratio 0.5 Ratio (1.1-2.1) L 06/19/23 04:10 Specimen Type Catherized urine 06/18/23 16:05 Urine Color Dark yellow (YELLOW) 06/18/23 16:05 Urine Appearance Clear (CLEAR) 06/18/23 16:05 Urine pH 6.0 (5.0 - 8.0) 06/18/23 16:05 Ur Specific [place] 1.025 (1.000-1.030) 06/18/23 16:05 Urine Protein 1+ (NEGATIVE) 06/18/23 16:05 Urine Glucose (UA) Negative (NEGATIVE) 06/18/23 16:05 Urine Ketones Negative (NEGATIVE) 06/18/23 16:05 Urine Blood 1+ (NEGATIVE) 06/18/23 16:05 Urine Nitrite Negative (NEGATIVE) 06/18/23 16:05 Urine Bilirubin Negative (NEGATIVE) 06/18/23 16:05 Urine Urobilinogen Normal (NORMAL) 06/18/23 16:05 Ur Leukocyte Esterase 1+ (NEGATIVE) 06/18/23 16:05 Urine RBC 0-2 /HPF (0-3) 06/18/23 16:05 Urine WBC 0-2 /HPF (0-5) 06/18/23 16:05 Ur Squamous Epith Cells Rare /HPF (NEGATIVE) 06/18/23 16:05 Ur Renal Epithelial Cell Rare /HPF (NEGATIVE) 06/18/23 16:05 Urine Bacteria Negative /HPF (NEGATIVE) 06/18/23 16:05 Hyaline Casts Moderate /LPF (NEGATIVE) 06/18/23 16:05 Granular Casts Moderate /LPF (NEGATIVE) 06/18/23 16:05 Ur Culture Indicated? No/not indicated 06/18/23 16:05 Stl Occult Blood (IFOB) Negative (NEGATIVE) 06/16/23 05:53 Stool for White Cells Positive (NEGATIVE) A 06/16/23 05:53 Stl C. diff Tox B Gene Negative (NEGATIVE) 06/16/23 05:53 Stl C. diff [id number] Presumptive negative (NEGATIVE) 06/16/23 05:53 SARS-CoV-2 (PCR) Negative (NEGATIVE) 06/14/23 09:05 Influenza Type A (PCR) Negative (NEGATIVE) 06/14/23 09:05 Influenza Type B (PCR) Negative (NEGATIVE) 06/14/23 09:05 RSV (PCR) Negative (NEGATIVE) 06/14/23 09:05 - Plan (1) Bilateral pleural effusion Status: Acute Plan: IV diuresis, IV antibiotics, neb tx, continue to monitor (2) Congestive heart failure (CHF) Status: Acute Qualifiers: Heart failure type: unspecified Heart failure chronicity: acute Qualified Code(s): I50.9 - Heart failure, unspecified Plan: Diuresis with IV Lasix. Check daily BNPs and chest x-rays. Monitor O2 saturation. (3) Hypoxemia Status: Acute Plan: Supplemental O2 via nasal cannula, diuresis with Lasix. I also will start nebulizer treatments as well. (4) Cirrhosis of liver with ascites Status: Acute Qualifiers: Hepatic cirrhosis type: unspecified hepatic cirrhosis Qualified Code(s): K74.60 - Unspecified cirrhosis of liver; R18.8 - Other ascites Plan: CONSULT GASTROENTEROLOGY (5) Diarrhea Status: Acute Qualifiers: Diarrhea type: unspecified type Qualified Code(s): R19.7 - Diarrhea, unspecified Plan: STOOL CULTURES PENDING (6) HTN (hypertension) Status: Chronic Qualifiers: Hypertension type: primary hypertension Qualified Code(s): I10 - Essential (primary) hypertension Plan: CONTINUE LOSARTAN (7) Hypothyroidism Status: Chronic Qualifiers: Hypothyroidism type: acquired Qualified Code(s): E03.9 - Hypothyroidism, unspecified Plan: CONTINUE LEVOTHYROXINE (8) DM (diabetes mellitus) Status: Chronic Qualifiers: Diabetes mellitus type: type 2 Diabetes mellitus buttermaker insulin use: with halfway use Diabetes mellitus complication status: with hyperglycemia Qualified Code(s): E11.65 - Type 2 diabetes mellitus with hyperglycemia; Z79.4 - CHCF (current) use of insulin Plan: CONTINUE METFORMIN (9) Hyperlipidemia Status: Chronic Qualifiers: Hyperlipidemia type: mixed hyperlipidemia Qualified Code(s): E78.2 - Mixed hyperlipidemia Plan: CONTINUE ATORVASTATIN
[2023-06-19] MEDS: NovoLIN R (or HumuLIN R) SUBCUT PRN (13:12)
[2023-06-19] MEDS: MORPHINE SULFATE INJ 2 MG INJ IVP PRN ×2 (16:02→20:37)
--- NOTE | 2023-06-19 18:05 | RAD ---
PROCEDURE: Chest X-ray 1 View .HISTORY: Status post thoracentesis.TECHNIQUE: AP view .COMPARISON: 06/19/2023 chest x-ray done at 4:37 a.m..TECHNICAL QUALITY: Satisfactory .FINDINGS:Normal size heart .Mediastinum and hilar regions show no masses or lymphadenopathy .Normal central vascularity .Continued patchy pneumonia throughout both lung houser. Unchanged moderate right pleural effusion at the base and laterally. Some decrease in fluid on the left. No pneumothorax.No acute bony abnormality .IMPRESSION:1. Decrease in pleural fluid on the left with no pneumothorax.2. Unchanged moderate right pleural effusion.3. Unchanged bilateral pneumonia.Electronically signed by: Maverick Quinn (Jun 19, 2023 18:04:19)
[2023-06-19] MEDS ORDERED: SNACK - Diabetic Appropriate PO SCH (20:00)
[2023-06-20] MEDS: MORPHINE SULFATE INJ 2 MG INJ IVP PRN ×4 (04:25→18:50)
[2023-06-20] MEDS: MAG-OX TAB PO SCH (05:02)
[2023-06-20] MEDS: BENTYL CAP 10 MG PO SCH ×2 (05:02→14:00)
[2023-06-20] MEDS: FORTAZ or TAZICEF VIAL INJ 1 G in NS 100 ML IV 100 ML IV SCH ×2 (05:13→14:00)
[2023-06-20] MEDS: SOLU-Medrol 40 MG VIAL IVP SCH (05:13)
[2023-06-20] MEDS: XOPENEX 1.25 MG/3 ML NEBULE NEB SCH (05:13)
[2023-06-20 05:21] LABS: BASOPHILS # (AUTO) 0.2 X10^3/uL (0.0-0.1); BASOPHILS % (AUTO) 0.6 % (0.2-1.0); EOSINOPHILS # (AUTO) 0.1 x10^3/uL (0.0-0.2); EOSINOPHILS % (AUTO) 0.2 % (0.9-2.9); HEMATOCRIT 35.9 % (36.0-47.0); HEMOGLOBIN 11.3 g/dL (12.0-16.0); LYMPHOCYTES # (AUTO) 0.7 X10^3/uL (1.3-2.9); MEAN CORPUSCULAR HEMOGLOBIN 25.5 pg (27.0-34.0); MEAN CORPUSCULAR HGB CONC 31.5 g/dL (33.0-35.0); MEAN CORPUSCULAR VOLUME 81.1 fL (80.0-100.0); MEAN PLATELET VOLUME 7.7 fL (7.4-11.0); MONOCYTES # (AUTO) 1.6 x10^3/uL (0.3-0.8); MONOCYTES % (AUTO) 4.8 % (0.0-13.0); NEUTROPHILS # (AUTO) 30.3 x10^3/uL (2.2-4.8); NEUTROPHILS % (AUTO) 92.4 % (42.0-75.0); PLATELET COUNT 172 X10^3/uL (150.0-450.0); RED BLOOD COUNT 4.43 X10^6/uL (3.5-5.4); RED CELL DISTRIBUTION WIDTH 21.5 % (11.6-16.5)
[2023-06-20 05:29] LABS: ALBUMIN 2.3 g/dL (3.4-5.0); CARBON DIOXIDE 27.4 mmol/L (21-32); COR CA(FOR HYPOALB) 8.4 mg/dL (8.5-10.1); CREATININE 1.29 mg/dL (0.55-1.02); MAGNESIUM 2.1 mg/dL (2.0-2.9); TOTAL PROTEIN 6.5 g/dL (6.4-8.2)
[2023-06-20 05:32] LABS: ERYTHROCYTE SEDIMENTATION RATE 101 MM/HOUR (0-20)
[2023-06-20 05:36] LABS: WHITE BLOOD COUNT 32.8 X10^3/uL (3.6-10.0)
[2023-06-20 05:56] LABS: ANISOCYTOSIS 1+; BAND NEUTROPHILS % 2 % (0-10); PLATELET MORPHOLOGY COMMENT NORMAL (NORMAL)
[2023-06-20 05:57] LABS: BURR CELLS SLIGHT; SCHISTOCYTES SLIGHT
--- NOTE | 2023-06-20 07:40 | RAD ---
EXAM:Chest AP portableHISTORY:Shortness of breath, congestive heart failure, bilateral pleural effusionsCOMPARISON:06/19/2023FINDINGS:H eart size is difficult to assess due to obscuration of both heart borders by large pleural effusions which are unchanged from the prior examination. Perihilar interstitial prominence and some patchy areas of alveolar filling are present bilaterally. This can be consistent with congestive heart failure or bilateral pneumonia and is unchanged. Clinical and laboratory correlation recommended. Bony thorax is unremarkable.IMPRESSION:No significant change from the prior examinationTHIS IS AN ELECTRONICALLY VERIFIED FINAL [id number]/2023 7:37 AM - Electronically signed by Alonso Morse MD
[2023-06-20] MEDS: PULMICORT NEB TX 0.5 MG NEB SCH (08:30)
[2023-06-20] MEDS: LASIX IVP SCH (08:59)
[2023-06-20] MEDS ORDERED: XANAX PO PRN (09:28)
[2023-06-20] MEDS ORDERED: DRUG FILTER EXTENSION SET ONE (09:40)
[2023-06-20] MEDS: OXYBUTYNIN CHLORIDE ER PO SCH (09:46)
[2023-06-20] MEDS: PriLOSEC PO SCH (09:47)
[2023-06-20] MEDS: GLUCOPHAGE PO SCH (09:47)
[2023-06-20] MEDS: COZAAR PO SCH (09:47)
[2023-06-20] MEDS: ASPIRIN EC 81 MG PO SCH (09:47)
[2023-06-20] MEDS: LIPITOR TAB 40 MG PO SCH (09:48)
[2023-06-20] MEDS: SYNTHROID 50 mcg TAB PO SCH (09:48)
[2023-06-20] MEDS: CIPRO IV 400 MG PREMIX* 400 MG/200 ML IV.SOLN. IV SCH (09:49)
[2023-06-20] MEDS: DIFLUCAN PO SCH (09:49)
[2023-06-20] MEDS: FLONASE NASAL SPRAY ENOSTRIL SCH (09:50)
[2023-06-20] MEDS ORDERED: CLINIMIX 4.25%-5% 1,000 ML with MVI INJ (ADULT) 10 ML IV SCH ×2 (10:00)
[2023-06-20] MEDS ORDERED: NS 1,000 ML IV 1,000 ML IV SCH (10:00)
[2023-06-20] MEDS ORDERED: MAGNESIUM SULFATE 50% INJ VIAL ONE (10:54)
[2023-06-20] MEDS ORDERED: CLINIMIX 4.25%-5% 1,000 ML with MVI INJ (ADULT) 10 ML, MAGNESIUM SULFATE 50% INJ VIAL 1 G IV SCH ×3 (11:00)
[2023-06-20] MEDS: NovoLIN R (or HumuLIN R) SUBCUT PRN (11:24)
--- NOTE | 2023-06-20 11:37 | PCM.PROG ---
Progress Note - Progress Note for Day of Date of Exam: 06/20/23 - Subjective Subjective: IS A 67 YEAR OLD PATIENT OF OURS. SHE IS CURRENTLY INPATIENT STATUS. SHE WAS ADMITTED ON 06/14/23 FOR TREATMENT OF PNEUMONIA, CONGESTIVE HEART FAILURE, HYPOXEMIA, BILATERAL PLEURAL EFFUSION, CIRRHOSIS OF LIVER WITH ASCITES, ELEVATED D-DIMER, ABDOMINAL PAIN, AND DIARRHEA. SHE HAS A PM H OF HTN, GERD, HYPOTHYROIDISM, DM II, HYPERLIPIDEMIA, ARTHRITIS, APPENDECTOMY, , AND TONSILLECTOMY. THE CHF AND CIRRHOSIS ARE NEW DX FOR HER. SHE IS STATUS POST THORACENTESIS BY AT BEDSIDE YESTERDAY. HE WAS APPARENTLY ONLY ABLE TO DRAW OFF ABOUT 40 ML OF FLUID TO SEND FOR ANALYSIS. TODAY, SHE IS ALERT AND ORIENTED, SITTING UP IN BED ON MORNING ROUNDS. SHE COMPLAINS OF WEAKNESS AND PERSISTENT SHORTNESS OF BREATH. SHE CONTINUES TO HAVE A NON- PRODUCTIVE COUGH. SHE IS CURRENTLY ON HEATED HIGH FLOW OXYGEN AT 15 LPM, [id number]. SHE DENIES IMPROVEMENT IN SYMPTOMS SINCE WE SAW HER YESTERDAY. HER FAMILY REPORTS THAT SHE WAS RESTLESS THROUGHOUT THE NIGHT AND BECAME AGITATED A FEW T IMES. ON EXAMINATION, HEART IS REGULAR IN RATE AND RHYTHM. BILATERAL LUNGS ARE NOTED WITH DIMINISHED LUNG SOUNDS THROUGHOUT. ABDOMEN IS ROUND, SOFT, AND NON- TENDER WITH HYPERACTIVE BOWEL SOUNDS NOTED. GOOD RANGE OF MOTION NOTED TO UPPER AND LOWER EXTREMITIES WITH TRACE LOWER EXTREMITY EDEMA NOTED. HER VITALS THIS MORNING ARE: 97.6-110-20-94%-136/81. LABS WERE OBTAINED. HER WBC INCREASED FROM 23.5 TO 32.8 THIS MORNING, HGB 11.3, HCT 35.9, PLT COUNT 172, SODIUM 126, POTASSIUM 6.0, CHLORIDE 91, BUN 37, CREATININE 1.29, GLUCOSE 169, CHLORIDE 91, BUN 37, CREATININE 1.29, GLUCOSE 169, CALCIUM 7.0, MAGNESIUM 2.1, TOTAL BILI 1.40, AMMONIA 49, CRP 109.10, TOTAL PROTEIN 6.5, ALBUMIN 2.3. PLUERAL FLUID ANALYSIS IS PENDING. A CHEST XRAY WAS OBTAINED THIS MORNING AND REVEALED: Heart size is difficult to assess due to obscuration of both heart borders by large pleural effusions which are unchanged from the prior examination. Perihilar interstitial prominence and some patchy areas of alveolar filling are present bilaterally. This can be consistent with congestive heart failure or bilateral pneumonia and is unchanged. Clinical and laboratory correlation recommended. Bony thorax is unremarkable. I FEEL THAT WHAT WE ARE DEALING WITH IS MORE OF A DENSE PNEUMONIA AND ARDS RATHER THAN AN EXACERBATION OF CHF. SHE IS CURRENTLY RECEIVING CIPRO 400MG IV Q12H, FORTAZ 1G IV Q8H, SOLU-MEDROL 40MG IV Q8H, MORPHINE SULFATE 1-2MG IV Q4H PRN, ZOFRAN 4MG IV Q6H PRN, XOPENEX NEBS QID, PULMICORT NEBS BID, ROBITUSSIN DM 10ML Q4H PRN, DIFLUCAN 100MG PO DAILY, LASIX 20MG IV BID, MAALOX 30ML Q4H PRN, MAG OX 800MG TID, POTASSIUM CHLORIDE 20MEQ PO DAILY. HER HOME MEDICATIONS OF ASPIRIN, LOSARTAN, OMEPRAZOLE, LEVOTHYROXINE, FLONASE, METFORMIN, OXYBUTYNIN, ATORVASTATIN, AND DICYCLOMINE WERE RESUMED. TODAY, WE WILL DISCONTINUE THE LASIX. WE WILL ADD NORMAL SALINE AT 50 ML/HR, TPN AT 50 ML/HR, XANAX 0.25MG TID PRN, AND WILL INCREASE THE SOLU-MEDROL TO 80 ML Q8H. , WRAP KNITTING MACHINE OPERATOR WILL SEE HER TODAY. WE WILL ALSO DO A PULMONOLOGY AND INFECTIOUS DISEASE CONSULT VIA TELEMED WITH THE [facility]. OTHERWISE, WE WILL FOLLOW UP WITH AM LABS AND CONTINUE TO MONITOR. TIME SPENT ON CLINICAL ASSESSMENT, REVIEWING LABS AND IMAGING, DECISION MAKING, AND DOCUMENTATION GREATER THAN 45 MINUTES. - Past Medical Family Social History Past Med/Fam/Surg Hx: No changes since H&P Allergies: Allergies nitrofurantoin [From Macrobid] Allergy (Verified 06/14/23 09:10) - Review of Systems ROS: No change since H&P - Vital Signs and I&O's Vital Signs: Vital Signs Temperature 97.6 F Temperature 97.6 F Temperature 97.6 F Temperature 98.4 F Pulse Rate 97 Pulse Rate 110 Pulse Rate 102 Pulse Rate 99 Pulse Rate 98 Pulse Rate 94 Pulse Rate 99 Pulse Rate 99 Pulse Rate 96 Pulse Rate 91 Pulse Rate 91 Pulse Rate 100 Pulse Rate 99 Pulse Rate 78 Respiratory Rate 13 Respiratory Rate 20 Respiratory Rate 16 Respiratory Rate 15 Respiratory Rate 24 Respiratory Rate 13 Respiratory Rate 14 Respiratory Rate 24 Respiratory Rate 18 Respiratory Rate 17 Respiratory Rate 22 Respiratory Rate 10 Respiratory Rate 9 Respiratory Rate 14 Respiratory Rate 22 Respiratory Rate 22 Respiratory Rate 19 Respiratory Rate 25 Respiratory Rate 9 Blood Pressure 149/76 Blood Pressure 136/81 Blood Pressure 138/72 Blood Pressure 120/59 Blood Pressure 120/59 Blood Pressure 119/58 Blood Pressure 119/58 Blood Pressure 132/93 Blood Pressure 137/98 Blood Pressure 117/67 O2 Sat by Pulse Oximetry 94 O2 Sat by Pulse Oximetry 94 O2 Sat by Pulse Oximetry 95 O2 Sat by Pulse Oximetry 95 O2 Sat by Pulse Oximetry 95 O2 Sat by Pulse Oximetry 96 O2 Sat by Pulse Oximetry 95 O2 Sat by Pulse Oximetry 95 O2 Sat by Pulse Oximetry 96 O2 Sat by Pulse Oximetry 95 O2 Sat by Pulse Oximetry 95 O2 Sat by Pulse Oximetry 94 O2 Sat by Pulse Oximetry 94 O2 Sat by Pulse Oximetry 96 Intake and Output: Intake & Output 06/17/23 06/18/23 06/19/23 06/20/23 11:59 11:59 11:59 11:59 Intake Total 1771 / 1771 1399 / 1399 1768 / 1876 1100 / 1100 Output Total 900 / 900 726 / 814 713 / 713 Balance 871 / 871 1399 / 1399 1042 / 1062 387 / 387 - Physical Exam Oriented: Normal, Time, Person, Place Eyes: Normal Ear: Normal Nose: Normal Throat: Normal Respiratory: Diminished Cardiovascular: Edema (TRACE BLE EDEMA ) : Normal Auscultation: Bowel Sounds: Normal Palpation: Normal Tenderness: Diffuse Skin: Normal Musculoskeletal: Normal Psychiatric: Normal Mood Description: Calm Affect: Normal Speech Pattern: Clear, Appropriate - Laboratory and Diagnostics Result Diagrams: 06/20/23 05:00 06/20/23 05:00 Labs: 06/19/23 16:37 Pleural Fluid - Preliminary 06/16/23 05:53 Stool Stool Culture - Preliminary 06/16/23 05:53 Stool - Final Laboratory WBC 32.8 X10^3/uL (3.6-10.0) H* D 06/20/23 05:00 RBC 4.43 X10^6/uL (3.5-5.4) 06/20/23 05:00 Hgb 11.3 g/dL (12.0-16.0) L 06/20/23 05:00 Hct 35.9 % (36.0-47.0) L 06/20/23 05:00 MCV 81.1 fL (80.0-100.0) 06/20/23 05:00 MCH 25.5 pg (27.0-34.0) L 06/20/23 05:00 MCHC 31.5 g/dL (33.0-35.0) L 06/20/23 05:00 RDW 21.5 % (11.6-16.5) H 06/20/23 05:00 Plt Count 172 X10^3/uL (150.0-450.0) 06/20/23 05:00 Plt Count Comment Adequate (ADEQUATE) 06/20/23 05:00 MPV 7.7 fL (7.4-11.0) 06/20/23 05:00 Neut % (Auto) 92.4 % (42.0-75.0) H 06/20/23 05:00 Lymph % (Auto) 2.0 % (21.0-51.0) L 06/20/23 05:00 [place] % (Auto) 4.8 % (0.0-13.0) 06/20/23 05:00 Eos % (Auto) 0.2 % (0.9-2.9) L 06/20/23 05:00 Baso % (Auto) 0.6 % (0.2-1.0) 06/20/23 05:00 Neut # (Auto) 30.3 x10^3/uL (2.2-4.8) H 06/20/23 05:00 Lymph # (Auto) 0.7 X10^3/uL (1.3-2.9) L 06/20/23 05:00 [place] # (Auto) 1.6 x10^3/uL (0.3-0.8) H 06/20/23 05:00 Eos # (Auto) 0.1 x10^3/uL (0.0-0.2) 06/20/23 05:00 Baso # (Auto) 0.2 X10^3/uL (0.0-0.1) H 06/20/23 05:00 Absolute Nucleated RBC 0.1 /100WBC 06/20/23 05:00 Total Counted 100 06/20/23 05:00 Neutrophils % (Manual) 91 % (39-76) H 06/20/23 05:00 Band Neutrophils % 2 % (0-10) 06/20/23 05:00 Lymphocytes % (Manual) 2 % (13-43) L 06/20/23 05:00 Monocytes % (Manual) 5 % (4-9) 06/20/23 05:00 Metamyelocytes % 2 06/19/23 04:10 Plt Morphology Comment Normal (NORMAL) 06/20/23 05:00 RBC Morphology Abnormal (NORMAL) A 06/20/23 05:00 Hypochromasia Slight A 06/18/23 05:11 Anisocytosis 1+ A 06/20/23 05:00 Target Cells Slight A 06/17/23 04:55 [place] Cells Slight A 06/20/23 05:00 Schistocytes Slight A 06/20/23 05:00 ESR 101 MM/HOUR (0-20) H 06/20/23 05:00 D-Dimer 8.90 ug/ml (0.0-0.57) H 06/14/23 09:12 Sample Site Rr 06/18/23 14:14 ABG pH 7.420 (7.35-7.45) 06/18/23 14:14 ABG pCO2 39.0 mmHg (35.0-45.0) 06/18/23 14:14 ABG pO2 74.0 mmHg (80.0-100.0) L 06/18/23 14:14 ABG HCO3 25.3 mmol/L (22-26) 06/18/23 14:14 ABG O2 Saturation 95.0 % (90-100) 06/18/23 14:14 ABG Base Excess 0.8 mmol/L (-2.0-2.0) 06/18/23 14:14 Anil Test Pos 06/18/23 14:14 A-a Gradient 234.0 mmHg 06/18/23 14:14 FiO2 50.0 06/18/23 14:14 Blood Gas Comments Tami well g[facility] 06/18/23 14:14 Sodium 126 mmol/L (136-145) L 06/20/23 05:00 Corrected Sodium 128 mmol/L (136-145) L 06/20/23 05:00 Potassium 6.0 mmol/L (3.5-5.1) H* 06/20/23 05:00 Chloride 91 mmol/L (98-107) L 06/20/23 05:00 Carbon Dioxide 27.4 mmol/L (21-32) 06/20/23 05:00 BUN 37 mg/dL (7-18) H 06/20/23 05:00 Creatinine 1.29 mg/dL (0.55-1.02) H 06/20/23 05:00 Est GFR (MDRD) Af Amer 53 (>60) L 06/20/23 05:00 Est GFR (MDRD) Non-Af 44 (>60) L 06/20/23 05:00 Glucose 169 mg/dL (65-99) H 06/20/23 05:00 POC Glucose (mg/dL) 196 mg/dL (65-99) H 06/20/23 11:10 Lactic Acid 5.0 mmol/L (0.4-2.0) H 06/19/23 09:11 Calcium 7.0 mg/dL (8.5-10.1) L 06/20/23 05:00 Corrected Calcium 8.4 mg/dL (8.5-10.1) L 06/20/23 05:00 Magnesium 2.1 mg/dL (2.0-2.9) 06/20/23 05:00 Total Bilirubin 1.40 mg/dL (0.2-1.0) H 06/20/23 05:00 AST 33 Units/L (15-37) 06/20/23 05:00 ALT 19 Units/L (12-78) 06/20/23 05:00 Alkaline Phosphatase 92 Units/L (46-116) 06/20/23 05:00 Ammonia 49 umol/L (11-32) H 06/20/23 05:00 Creatine Kinase 86 Units/L (26-192) 06/14/23 09:12 Troponin I High Sens 21.4 ng/L (4.0-60.0) 06/14/23 09:12 C-Reactive Protein 109.10 mg/L (0-3.0) H 06/20/23 05:00 B-Natriuretic Peptide 62.5 pg/mL (0-79) 06/20/23 05:00 Total Protein 6.5 g/dL (6.4-8.2) 06/20/23 05:00 Albumin 2.3 g/dL (3.4-5.0) L 06/20/23 05:00 Globulin 4.2 g/dL (2.5-4.5) 06/20/23 05:00 Albumin/Globulin Ratio 0.5 Ratio (1.1-2.1) L 06/20/23 05:00 Specimen Type Catherized urine 06/18/23 16:05 Urine Color Dark yellow (YELLOW) 06/18/23 16:05 Urine Appearance Clear (CLEAR) 06/18/23 16:05 Urine pH 6.0 (5.0 - 8.0) 06/18/23 16:05 Ur Specific [place] 1.025 (1.000-1.030) 06/18/23 16:05 Urine Protein 1+ (NEGATIVE) 06/18/23 16:05 Urine Glucose (UA) Negative (NEGATIVE) 06/18/23 16:05 Urine Ketones Negative (NEGATIVE) 06/18/23 16:05 Urine Blood 1+ (NEGATIVE) 06/18/23 16:05 Urine Nitrite Negative (NEGATIVE) 06/18/23 16:05 Urine Bilirubin Negative (NEGATIVE) 06/18/23 16:05 Urine Urobilinogen Normal (NORMAL) 06/18/23 16:05 Ur Leukocyte Esterase 1+ (NEGATIVE) 06/18/23 16:05 Urine RBC 0-2 /HPF (0-3) 06/18/23 16:05 Urine WBC 0-2 /HPF (0-5) 06/18/23 16:05 Ur Squamous Epith Cells Rare /HPF (NEGATIVE) 06/18/23 16:05 Ur Renal Epithelial Cell Rare /HPF (NEGATIVE) 06/18/23 16:05 Urine Bacteria Negative /HPF (NEGATIVE) 06/18/23 16:05 Hyaline Casts Moderate /LPF (NEGATIVE) 06/18/23 16:05 Granular Casts Moderate /LPF (NEGATIVE) 06/18/23 16:05 Ur Culture Indicated? No/not indicated 06/18/23 16:05 Fluid pH 8.0 06/19/23 16:37 Stl Occult Blood (IFOB) Negative (NEGATIVE) 06/16/23 05:53 Stool for White Cells Positive (NEGATIVE) A 06/16/23 05:53 Stl C. diff Tox B Gene Negative (NEGATIVE) 06/16/23 05:53 Stl C. diff [id number] Presumptive negative (NEGATIVE) 06/16/23 05:53 SARS-CoV-2 (PCR) Negative (NEGATIVE) 06/14/23 09:05 Influenza Type A (PCR) Negative (NEGATIVE) 06/14/23 09:05 Influenza Type B (PCR) Negative (NEGATIVE) 06/14/23 09:05 RSV (PCR) Negative (NEGATIVE) 06/14/23 09:05 Resp Viral Panel (PCR) See scanned report 06/14/23 16:25 SARS CoV-2 RNA Rapid BOY Negative (NEGATIVE) 06/19/23 11:35 - Plan (1) Pneumonia Status: Acute Qualifiers: Pneumonia type: due to unspecified organism Laterality: bilateral Lung location: unspecified part of lung Qualified Code(s): J18.9 - Pneumonia, unspecified organism Plan: IV ANTIBIOTICS, NEB TX, RESPIRATORY THERAPY, CONTINUE TO MONITOR (2) Bilateral pleural effusion Status: Acute Plan: IV antibiotics, neb tx, continue to monitor (3) Congestive heart failure (CHF) Status: Acute Qualifiers: Heart failure type: unspecified Heart failure chronicity: acute Qualified Code(s): I50.9 - Heart failure, unspecified Plan: Check daily BNPs and chest x-rays. Monitor O2 saturation. (4) Hypoxemia Status: Acute Plan: Supplemental O2 via nasal cannula, RESPIRATORY THERAPY AND NEBULIZER TREATMENTS (5) Cirrhosis of liver with ascites Status: Acute Qualifiers: Hepatic cirrhosis type: unspecified hepatic cirrhosis Qualified Code(s): K74.60 - Unspecified cirrhosis of liver; R18.8 - Other ascites Plan: CONSULT GASTROENTEROLOGY (6) Diarrhea Status: Acute Qualifiers: Diarrhea type: unspecified type Qualified Code(s): R19.7 - Diarrhea, unspecified Plan: STOOL CULTURES PENDING (7) HTN (hypertension) Status: Chronic Qualifiers: Hypertension type: primary hypertension Qualified Code(s): I10 - Essential (primary) hypertension Plan: CONTINUE LOSARTAN (8) Hypothyroidism Status: Chronic Qualifiers: Hypothyroidism type: acquired Qualified Code(s): E03.9 - Hypothyroidism, unspecified Plan: CONTINUE LEVOTHYROXINE (9) DM (diabetes mellitus) Status: Chronic Qualifiers: Diabetes mellitus type: type 2 Diabetes mellitus senior care insulin use: with manager long term care use Diabetes mellitus complication status: with hyperglycemia Qualified Code(s): E11.65 - Type 2 diabetes mellitus with hyperglycemia; Z79.4 - longterm (current) use of insulin Plan: CONTINUE METFORMIN (10) Hyperlipidemia Status: Chronic Qualifiers: Hyperlipidemia type: mixed hyperlipidemia Qualified Code(s): E78.2 - Mixed hyperlipidemia Plan: CONTINUE ATORVASTATIN
[2023-06-20] MEDS ORDERED: XOPENEX 1.25 MG/3 ML NEBULE NEB SCH (13:00)
[2023-06-20 13:05] LABS: ABG BASE EXCESS 0.3 mmol/L (-2.0-2.0); ABG HCO3 26.9 mmol/L (22-26)
[2023-06-20] MEDS ORDERED: SOLU-Medrol 40 MG VIAL IVP SCH (14:00)
[2023-06-20] MEDS ORDERED: DEXTROSE 10% 1,000 ML IV PRN (14:22)
[2023-06-20] MEDS ORDERED: NovoLIN R (or HumuLIN R) SUBCUT PRN (14:22)
[2023-06-20 15:18] LABS: MAGNESIUM 2.2 mg/dL (2.0-2.9); PHOSPHORUS 2.7 mg/dL (2.6-4.7)
[2023-06-20 16:06] VITALS: O2SAT 96
[2023-06-20 16:07] VITALS: BMI 23.3
[2023-06-20 18:03] VITALS: BP 125/71; PULSE 83
[2023-06-20 18:06] VITALS: TEMP 97.6
[2023-06-20 19:05] VITALS: RESP 26
--- NOTE | 2023-06-21 11:25 | DR.CONSULT ---
Consult - Consultation for Day of: Date: 06/20/23 (GI) - Chief Complaint Chief Complaint: Pt is a 67 y/o who is referred for cirrhosis of liver. Pt presented to the [facility] emergency department for a 3-week history of increasing shortness of breath. She woke up this morning feeling very short of breath, and her checked her O2 sat, and it was 85% on room air. She was also complaining of abdominal pain/cramping and diarrhea. Once she arrived to the emergency department, they placed her on 3 L nasal cannula and were able to get her oxygen level up to 95%. The ER physician did a chest x-ray, thought the patient may be slightly fluid overloaded, and started on IV Lasix, and she responded positively with improving aeration and decreasing shortness of breath. A D-dimer was drawn, and it came back elevated at 8.9 so they proceeded with a CTA of the chest, and it was negative for pulmonary embolism. However the CTA did show that the patient has bilateral pleural effusions right greater than left and changes of pulmonary congestion. The chest x-ray from yesterday compared to today's is not significantly changed after IV diuresis. See that her BNP has gone up from 38-77. Patient also had a elevated white blood cell count 15,000, and and today it is slightly down at 13,600. The patient reports that she feels better this morning and that her breathing is back to her normal baseline. The CTA scan also shows that she has cirrhosis of the liver with a moderate amount of ascites in her abdomen. The patient's bilirubin was elevated at 2.0 coming in and has decreased to 1.8 this morning. The emergency department did not start a work-up for her diarrhea so we will order stool cultures, stool WBCs and C. difficile. - Past Medical History Past Medical History: Hypertension, Dyslipidemia, Diabetes, Hypothyroidism, Asthma, GERD - Past Surgical History Surgical History: Appendectomy, , Tonsillectomy - Social History Does patient currently use any type of tobacco product: No Have you used tobacco products in the last 12 months: No Type of Tobacco Use: None Does any household member use tobacco: No Alcohol Use: None Drug Use: None - Medications Home Medications: nitrofurantoin [From Macrobid] Allergy (Verified 06/14/23 09:10) CONTINUE taking the following medications ciprofloxacin HCl 500 mg tablet (Cipro) 500 mg PO BID 06/14/23 [History] dicyclomine 10 mg capsule 10 mg PO TID 06/14/23 [History] fluticasone propionate 50 mcg/actuation nasal spray,suspension 50 mcg intranasal DAILY 06/14/23 [History] losartan 100 mg tablet 100 mg PO DAILY 06/14/23 [History] metformin 850 mg tablet 850 mg PO BID 06/14/23 [History] oxybutynin chloride 5 mg tablet,extended release 24 hr 5 mg PO DAILY 06/14/23 [History] - Review of Systems Constitutional: See HPI. denies: No Symptoms Reported, Fever, Chills, Sweats, Weakness, Malaise, Other Eyes: No Symptoms Reported. denies: See HPI, Pain, Vision Change, Conjunctivae Inflammation, Eyelid Inflammation, Redness, Other ENT: No Symptoms Reported. denies: See HPI, Ear Pain, Ear Discharge, Nose Pain, Nose Discharge, Nose Congestion, Mouth Pain, Mouth Swelling, Throat Pain, Throat Swelling, Other Respiratory: Shortness of Breath. denies: No Symptoms Reported, See HPI, Cough, Dry, Hemoptysis, SOB with Excertion, Pleuritic Pain, Sputum, Wheezing, Other Cardiovascular: See HPI. denies: No Symptoms Reported, Chest Pain, Palpitations , Orthopnea, Paroxysmal Noc. Dyspnea, Edema, Light Headedness, Other Gastrointestinal: See HPI, Diarrhea. denies: No Symptoms Reported, Nausea, Vomiting, Abdominal Pain, Constipation, Melena, Hematochezia, Other Genitourinary: No Symptoms Reported. denies: See HPI, Dysuria, Frequency, Incontinence, Hematuria, Retention, Other Musculoskeletal: No Symptoms Reported. denies: See HPI, Shoulder Pain, Arm Pain, Back Pain, Hand Pain, Leg Pain, Foot Pain, Neck Pain, Other Skin: No Symptoms Reported. denies: See HPI, Rash, Lesions, Jaundice, Bruising, Wound, Ecchymosis, Other Neurological: See HPI, Weakness. denies: No Symptoms Reported, Numbness, Incoordination, Change in Speech, Confusion, Seizures, Other - Physical Exam Vital Signs: Vital Signs Temperature 97.2 F Pulse Rate 91 Pulse Rate 93 Pulse Rate 100 Pulse Rate 100 Pulse Rate 100 Pulse Rate 96 Pulse Rate 102 Pulse Rate 101 Pulse Rate 100 Pulse Rate 101 Pulse Rate 97 Pulse Rate 110 Pulse Rate 102 Pulse Rate 99 Pulse Rate 98 Respiratory Rate 16 Respiratory Rate 13 Respiratory Rate 19 Respiratory Rate 14 Respiratory Rate 16 Respiratory Rate 22 Respiratory Rate 33 Respiratory Rate 22 Respiratory Rate 21 Respiratory Rate 39 Respiratory Rate 16 Respiratory Rate 17 Respiratory Rate 13 Respiratory Rate 20 Respiratory Rate 16 Respiratory Rate 15 Respiratory Rate 24 Respiratory Rate 13 Respiratory Rate 14 Blood Pressure 102/72 Blood Pressure 127/82 Blood Pressure 155/82 Blood Pressure 155/85 Blood Pressure 155/85 Blood Pressure 157/90 Blood Pressure 157/90 Blood Pressure 149/76 Blood Pressure 149/76 Blood Pressure 136/81 Blood Pressure 138/72 O2 Sat by Pulse Oximetry 96 O2 Sat by Pulse Oximetry 95 O2 Sat by Pulse Oximetry 94 O2 Sat by Pulse Oximetry 96 O2 Sat by Pulse Oximetry 94 O2 Sat by Pulse Oximetry 95 O2 Sat by Pulse Oximetry 94 O2 Sat by Pulse Oximetry 95 O2 Sat by Pulse Oximetry 94 O2 Sat by Pulse Oximetry 94 O2 Sat by Pulse Oximetry 94 O2 Sat by Pulse Oximetry 94 O2 Sat by Pulse Oximetry 94 O2 Sat by Pulse Oximetry 95 O2 Sat by Pulse Oximetry 95 O2 Sat by Pulse Oximetry 95 Oriented: Normal. negative: Time, Person, Place, Not Oriented, Unable to test, Other Eyes: negative: Normal, Blurred Vision, Diplopia, Discharge, Pain, Redness, Photophobia, Other Ear: negative: Normal, Right, Left, Swelling, Ecchymosis, Hemotypanum, Abrasion, Laceration Nose: negative: Normal, Injected, Discharge, Blood, Other Throat: negative: Normal, Tonsillar Hypertrophy, Red, Exudate, Dry, Other Respiratory: Diminished Throughout. negative: Clear Throughout, Rhonchi Throughout, Rales Throughout, Wheezes Throughout, RUL Clear, RML Clear, RLL Clear, [place]INA Clear, LML Clear, LLL Clear, RUL Diminished, RML Diminished, RLL Diminished, [place] Diminished, LML Diminished, LLL Diminished, RUL Absent, RML Absent, RLL Absent, CORINA Absent, LML Absent, LLL Absent, RUL Rhonchi, RML Rhonchi, RLL Rhonchi, CORINA Rhonchi, LML Rhonchi, LLL Rhonchi, RUL Insp. Wheeze, RML Insp. Wheeze, RLL Insp. Wheeze, CORINA Insp.Wheeze, LML Insp.Wheeze, LLL Insp.Wheeze, RUL Exp. Wheeze, RML Exp. Wheeze, RLL Exp. Wheeze, CORINA Exp. Wheeze, LML Exp. Wheeze, LLL Exp. Wheeze, RUL Rales, RML Rales, RLL Rales, CORINA Rales, LML Rales, LLL Rales, RUL Rub, RML Rub, RLL Rub, COR[place] Rub, LML Rub, LLL Rub, RUL Squeak, RML Squeak, RLL Squeak, CORINA Squeak, LML Squeak, LLL Squeak Cardiovascular: Normal. negative: Tachycardia, Bradycardia, Irregular, S3, S4, Systolic, Diastolic, Murmur, Edema, Other : negative: Normal, Dysuria, Hematuria, Frequency, Discharge, Testicular Pain, Bleeding, , Other Auscultation: Bowel Sounds: Normal. negative: Bruit, Absent, Increased, Decreased, High Pitched, Other Palpation: negative: Normal, Spleen Enlarged, Liver Enlarged, Mass Pulsatile, Other Tenderness: Normal. negative: Diffuse, RUQ, RLQ, LUQ, LLQ, Epigastric, [place] umbilical, Suprapubic, Mild, Moderate, Severe, Rebound, Guarding, Rigidity, Other Skin: Normal. negative: Decreased Turgur, Rash, Papular, Macular, Maculopapular, Vesicular, Pustular, Petechial, Red, Tender, Hot, Diaphoresis, Wound, Bruising, Ecchymosis, Other Musculoskeletal: Normal. negative: Right, Left, Shoulder, Clavicle, Arm, Elbow, Forearm, Wrist, Hand, Hip, Thigh, Knee, Leg, Ankle, Foot, Back:Thoracic, Back:Lumbar, Back:Midline, Back:Paraspinous, Pelvis, Swelling, Tender, Deformity, Pulse Deficit, Motor Deficit, Sensory Deficit, Instability, Crepitance Psychiatric: Normal. negative: Anxiety, Depression, Agitation, Other Mood Description: Calm, Appropriate. negative: Angry, Apathetic, Depressed, Fearful, Flat, Happy, Hostile, Sad, Suspicious, Withdrawn, Anxious, Labile Affect: Normal. negative: Angry, Anxious, Depressed, Flat, Hysterical, Quiet, Violent Speech Pattern: Clear, Appropriate. negative: Unclear, Inappropriate, Delayed, Slurred, Excessive, Aphasic, Artificially Ventilated, Trach(not ventilated) - Plan Plan: Assessment. 1. Cirrhosis of liver, unknown etiology. PLan: Serologic workup for various liver diseases, diuretics as needed. - Allergies Allergies/Adverse Reactions: Allergies Allergy/AdvReac Type Severity Reaction Status Date / Time nitrofurantoin Allergy Verified 06/14/23 09:10 [From Macrobid]
[2023-06-22 07:13] LABS: HEPATITIS B SURFACE ANTIGEN Negative (Negative)
== END 2023-06-20 18:55 | disposition short-term general hospital (02) | DRG 194 ==
LOC: ER 08:55 → MED/SURG 15:02 → ICU 06-18 19:08
PROVIDERS: ADMIT Family Medicine; ATTEND Internal Medicine
DX: I50.9 Heart failure, unspecified; R79.1 Abnormal coagulation profile; I11.0 Hypertensive heart disease with heart failure; B37.89 Other sites of candidiasis; K74.69 Other cirrhosis of liver; Z20.822 Contact with and (suspected) exposure to COVID-19; R09.02 Hypoxemia; R10.84 Generalized abdominal pain; R06.02 Shortness of breath; R19.7 Diarrhea, unspecified; E11.65 Type 2 diabetes mellitus with hyperglycemia; R79.82 Elevated C-reactive protein (CRP); J18.8 Other pneumonia, unspecified organism; Z66 Do not resuscitate; E03.8 Other specified hypothyroidism; Z87.09 Personal history of other diseases of the respiratory system; J90 Pleural effusion, not elsewhere classified; E78.2 Mixed hyperlipidemia; K21.9 Gastro-esophageal reflux disease without esophagitis; R18.8 Other ascites; Z79.4 Long term (current) use of insulin